=== PATIENT | female | born 1985 | race Caucasian/White ===

== ENCOUNTER 2018-01-22 11:31 | Emergency (ER) | payer MEDICAID ==
--- OUTSIDE RECORDS SUMMARY | 2018-01-22 11:34 | XMS REPORT ---
:1985 [facility] Address [address] [place] [address] Dr. Victor[address] [place] [id number] Care Team Providers Name Role Phone UNKNOWN, REFFERING Primary Care Provider Unavailable Problems This patient has no known problems. Allergies, Adverse Reactions, Alerts This patient has no known allergies or adverse reactions. Medications This patient has no known medications. Encounters Start End Encounter Admission Attending Care Care Encounter Date/Time Date/Time Type Type Clinicians Facility Department ID 2017-03-13 2017-03-13 Emergency E [facility] MED [id number] 16:05:00 16:05:00
[2018-01-22 12:55] LABS: Urine Blood NEGATIVE (NEG); Urine Glucose NEGATIVE (NEG); Urine Protein NEGATIVE (NEG); Urine Specific Gravity <1.005 (1.005-1.030); Urine pH 5.5 (5.0-7.0)
--- NOTE | 2018-01-22 14:09 | ER ---
Nurse's Notes [facility] Name: Patricia Dsouza Age: 33 yrs Sex: Female : 1985 Arrival Date: 01/22/2018 Time: 11:34 Bed 19 Private MD: Jacoby Bajwa Diagnosis: Urticaria, unspecified Presentation: 01/22 11:38 Presenting complaint: Patient states: Itchy rash all over body that "moves around to different locations" for 1 week. Transition of care: patient was not received from another setting of care. Onset of symptoms was January 16, 2018. Care prior to arrival: None. 11:38 Method Of Arrival: Ambulatory 11:38 Acuity: DARION 5 aj 12:20 Initial Sepsis Screen: Does the patient meet any 2 criteria? No. Patient's initial tw2 sepsis screen is negative. Does the patient have a suspected source of infection? No. Patient's initial sepsis screen is negative. Triage Assessment: 11:39 General: Appears in no apparent distress. comfortable, Behavior is calm, cooperative, aj appropriate for age. Pain: Denies pain. Neuro: Level of Consciousness is awake, alert, obeys commands, Oriented to person, place, time, situation, Appropriate for age. Respiratory: Airway is patent Respiratory effort is even, unlabored, Respiratory pattern is regular, symmetrical. Derm: Skin is intact, is healthy with good turgor, Skin is pink, warm \\T\\ dry. normal, Rash noted that is itchy, on face, scalp, right arm, left arm, right leg and left leg. 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 Elliott states I need sx on it; - PSHx: 11:39 heart cath; ; Hernia repair; aj - Immunization history:: Adult Immunizations up to date. - Social history:: Smoking status: Patient/guardian denies using tobacco. Screenin:20 Abuse screen: Denies threats or abuse. Nutritional screening: No deficits noted. tw2 Tuberculosis screening: No symptoms or risk factors identified. Fall Risk None identified. Assessment: 12:09 General: Appears in no apparent distress. Pain: Denies pain. Neuro: Level of tw2 Consciousness is awake, alert, obeys commands, Oriented to person, place, time, situation. Cardiovascular: Denies chest pain, shortness of breath, Capillary refill < 3 seconds Patient's skin is warm and dry. Respiratory: Airway is patent Respiratory effort is even, unlabored, Respiratory pattern is regular, symmetrical. GI: No signs and/or symptoms were reported involving the gastrointestinal system. : No signs and/or symptoms were reported regarding the genitourinary system. EENT: No signs and/or symptoms were reported regarding the EENT system. Derm: Reports itching, "rash all over me from the neck down". Musculoskeletal: Range of motion: intact in all extremities. 13:25 Reassessment: Patient appears in no apparent distress at this time. No changes from tw2 previously documented assessment. Patient and/or family updated on plan of care and expected duration. Pain level reassessed. Patient is alert, oriented x 3, equal unlabored respirations, skin warm/dry/pink. 14:15 Reassessment: Patient appears in no apparent distress at this time. No changes from tw2 previously documented assessment. Patient and/or family updated on plan of care and expected duration. Pain level reassessed. Patient is alert, oriented x 3, equal unlabored respirations, skin warm/dry/pink. Vital Signs: 11:39 BP 125 / 73; Pulse 83; Resp 17; Temp 97.8; Pulse Ox 99% on R/A; Weight 66.68 kg; Height aj 5 ft. 5 in. (165.10 cm); 13:25 BP 116 / 61; Pulse 88; Resp 17; Pulse Ox 100% on R/A; tw2 14:15 BP 104 / 59; Pulse 87; Resp 17; Pulse Ox 99% on R/A; tw2 11:39 Body Mass Index 24.46 (66.68 kg, 165.10 cm) ED Course: 11:34 Patient arrived in ED. mr 11:34 Jacoby Bajwa MD is Private Physician. mr 11:39 Triage completed. aj 11:39 Arm band placed on right wrist. Patient placed in an exam room. aj 11:43 Mala Camargo RN is Primary Nurse. tw2 11:43 Placed in gown. tw2 12:09 Balbir Petit PA is PHCP. cp 12:09 Andres Alvarez MD is Attending Physician. cp 13:50 Inserted saline lock: 22 gauge in right antecubital area, using aseptic technique. tw2 ,using aseptic technique. per Art Cuellar Blood collected. 14:26 No provider procedures requiring assistance completed. tw2 14:26 IV discontinued, intact, bleeding controlled, No redness/swelling at site. Pressure tw2 dressing applied. Administered Medications: No medications were administered Outcome: 14:08 Discharge ordered by MD. cp 14:26 Discharged to home ambulatory, with significant other. tw2 14:26 Condition: stable 14:26 Discharge instructions given to patient, significant other, Instructed on discharge instructions, follow up and referral plans. no drinking with medication, no driving heavy equipment, medication usage, Demonstrated understanding of instructions, follow-up care, medications, Prescriptions given X 3. 14:27 Patient left the ED. tw2 Signatures: Valarie Bourne RN Char Porras Balbir Petit PA PA cp Wise, Tara, RN RN tw2
--- NOTE | 2018-01-22 14:09 | EDPHYS ---
Physician Documentation [facility] Name: Patricia Dsouza Age: 33 yrs Sex: Female : 1985 Arrival Date: 01/22/2018 Time: 11:34 Bed 19 Private MD: Jacoby Bajwa ED Physician Andres Alvarez HPI: 01/22 12:45 This 33 yrs old Female presents to ER via Ambulatory with complaints of Rash. cp 12:45 The patient's rash thought to be caused by an unknown cause. cp 12:45 The rash is located on the body diffusely. The rash can be described as urticarial. cp Onset: The symptoms/episode began/occurred 1 week(s) ago. 12:45 Associated signs and symptoms: Pertinent negatives: difficulty breathing, fever, cp swelling of lips, swelling of throat, swelling of tongue, wheezing. 12:45 Treatment given at home: steroid lotion/cream. 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 Elliott states I need sx on it; - PSHx: 11:39 heart cath; ; Hernia repair; aj - Immunization history:: Adult Immunizations up to date. - Social history:: Smoking status: Patient/guardian denies using tobacco. ROS: 13:00 Constitutional: Negative for body aches, chills, fever, poor PO intake. cp 13:00 Eyes: Negative for injury, pain, redness, and discharge. cp 13:00 ENT: Negative for drainage from ear(s), ear pain, sore throat, difficulty swallowing, difficulty handling secretions. 13:00 Cardiovascular: Negative for chest pain, edema, palpitations. 13:00 Respiratory: Negative for cough, shortness of breath, wheezing. 13:00 Abdomen/GI: Negative for abdominal pain, nausea, vomiting, and diarrhea. 13:00 Skin: Positive for rash, diffusely. 13:00 All other systems are negative. Exam: 13:05 Constitutional: The patient appears in no acute distress, alert, awake, non-toxic, well cp developed, well nourished. 13:05 Head/Face: Normocephalic, atraumatic. cp 13:05 Eyes: Periorbital structures: appear normal, Conjunctiva: normal, no exudate, no injection, Lids and lashes: appear normal, bilaterally. 13:05 ENT: External ear(s): are unremarkable, Ear canal(s): are normal, clear, TM's: dullness, bilaterally, Nose: is normal, Mouth: is normal, Posterior pharynx: is normal, airway is patent, no erythema, no exudate. 13:05 Chest/axilla: Palpation: is normal, no crepitus, no tenderness. 13:05 Cardiovascular: Rate: normal, Rhythm: regular. 13:05 Respiratory: the patient does not display signs of respiratory distress, Respirations: normal, no use of accessory muscles, no retractions, no splinting, no tachypnea, labored breathing, is not present, Breath sounds: are clear throughout, no decreased breath sounds, no stridor, no wheezing. 13:05 Abdomen/GI: Exam negative for discomfort, distension, guarding, Bowel sounds: active, all quadrants, Palpation: abdomen is soft and non-tender, in all quadrants. 13:05 Skin: abscess, not appreciated, cellulitis, is not appreciated, rash a moderate rash is noted, rash can be described as urticarial, and is diffusely located. 13:05 Neuro: Orientation: to person, place \T\ time. Mentation: lucid, able to follow commands, Cerebellar function: is grossly normal, Motor: moves all fours, strength is normal. Vital Signs: 11:39 BP 125 / 73; Pulse 83; Resp 17; Temp 97.8; Pulse Ox 99% on R/A; Weight 66.68 kg; Height aj 5 ft. 5 in. (165.10 cm); 13:25 BP 116 / 61; Pulse 88; Resp 17; Pulse Ox 100% on R/A; tw2 14:15 BP 104 / 59; Pulse 87; Resp 17; Pulse Ox 99% on R/A; tw2 11:39 Body Mass Index 24.46 (66.68 kg, 165.10 cm) aj MDM: 12:09 Patient medically screened. cp 13:00 Differential diagnosis: impetigo, varicella, allergic reaction, scabies. cp 14:07 Data reviewed: vital signs, nurses notes, and as a result, I will discharge patient. 01/22 12:48 Order name: Urine Dipstick--Ancillary (enter results); Complete Time: 13:05 [facility] 01/22 13:05 Interpretation: Reviewed. 01/22 12:48 Order name: Test, Serum; Complete Time: 14:07 [facility] 01/22 12:39 Order name: Urine Dipstick-Ancillary (obtain specimen); Complete Time: 12:41 01/22 12:39 Order name: Urine Test (obtain specimen); Complete Time: 12:41 cp Administered Medications: No medications were administered Disposition: 17:46 Co-signature as Attending Physician, Andres Alvarez MD I agree with the assessment and kdr plan of care. Disposition: 01/22/18 14:08 Discharged to Home. Impression: Urticaria, unspecified. - Condition is Stable. - Discharge Instructions: Hives. - Prescriptions for Vistaril 25 mg Oral capsule - take 1 capsule by ORAL route 4 times per day; 30 capsule. Pepcid 20 mg Oral Tablet - take 1 tablet by ORAL route every 12 hours for 5 days; 10 tablet. Prednisone 20 mg Oral Tablet - take 2 tablet by ORAL route once daily for 5 days; 10 tablet. - Medication Reconciliation Form, Thank You Letter, Antibiotic Education, Prescription Opioid Use form. - Follow up: Private Physician; When: 1 week; Reason: symptoms continue. - Problem is new. - Symptoms are unchanged. Signatures: Dispatcher [email or web address]Valarie Corley RN RN aj Rittger, Kevin, MD MD [facility] Balbir Petit PA PA cp Mala Camargo RN RN tw2 Corrections: (The following items were deleted from the chart) 14:27 14:08 01/22/2018 14:08 Discharged to Home. Impression: Urticaria, unspecified. tw2 Condition is Stable. Forms are Medication Reconciliation Form, Thank You Letter, Antibiotic Education, Prescription Opioid Use. Follow up: Private Physician; When: 1 week; Reason: symptoms continue. Problem is new. Symptoms are unchanged. cp
[2018-01-22 14:36] VITALS: TEMP 97.8
[2018-01-22 14:39] VITALS: BP 104/59; O2SAT 99
== END 2018-01-22 14:27 | disposition home or self-care (01) ==
LOC: ER 11:31
DX: L50.9 Urticaria, unspecified (principal)
CPT/HCPCS: 36415; 81003; 84703; 99283

== ENCOUNTER 2018-02-15 05:37 | Emergency (ER) | payer MEDICAID ==
--- OUTSIDE RECORDS SUMMARY | 2018-02-15 05:38 | XMS REPORT ---
:1985 [facility] Address [address] [place] [address] Dr. Victor. [address] [place] [id number] Care Team Providers Name Role Phone UNKNOWN, REFFERING Primary Care Provider Unavailable Problems This patient has no known problems. Allergies, Adverse Reactions, Alerts This patient has no known allergies or adverse reactions. Medications This patient has no known medications. Encounters Start End Encounter Admission Attending Care Care Encounter Date/Time Date/Time Type Type Clinicians Facility Department ID 2017-03-13 2017-03-13 Emergency E [facility] MED [id number] 16:05:00 16:05:00
[2018-02-15] MEDS ORDERED: DEXAMETHASONE 10 MG/ML VIAL ONE (06:25)
[2018-02-15] MEDS ORDERED: HYDROCOD 2.5mg-ACETAMIN 108mg/5mL Soln ONE (06:26)
[2018-02-15] MEDS ORDERED: ONDANSETRON 4 MG (ODT) TAB ONE (06:26)
--- NOTE | 2018-02-15 07:26 | ER ---
Nurse's Notes [facility] Name: Patricia Posey Age: 33 yrs Sex: Female : 1985 Arrival Date: 02/15/2018 Time: 05:37 Bed 7 Private MD: Jacoby Bajwa Diagnosis: Streptococcal pharyngitis Presentation: 02/15 05:46 Presenting complaint: Patient states: she has a sore throat x 3 days denies fever bb states it feels like her throat is "sticking together" when she swallows and the pain is 10/10 she also had 2 days of vomiting and diarrhea prior to sore throat symptoms. Transition of care: patient was not received from another setting of care. Onset of symptoms was February 12, 2016. Risk Assessment: Do you want to hurt yourself or someone else? Patient reports no desire to harm self or others. Initial Sepsis Screen: Does the patient meet any 2 criteria? No. Patient's initial sepsis screen is negative. Does the patient have a suspected source of infection? No. Patient's initial sepsis screen is negative. Care prior to arrival: None. 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 Elliott states I need sx on it; - PSHx: 05:48 heart ablation; ; Hernia repair; bb - Immunization history:: Adult Immunizations up to date. - Social history:: Smoking status: Patient/guardian denies using tobacco, Patient/guardian denies using alcohol, street drugs. - Ebola Screening: : No symptoms or risks identified at this time. Screenin:51 Abuse screen: Denies threats or abuse. Denies injuries from another. Nutritional lp1 screening: No deficits noted. Tuberculosis screening: No symptoms or risk factors identified. Fall Risk None identified. Assessment: 05:50 General: Appears in no apparent distress. Behavior is calm, cooperative, appropriate lp1 for age. Pain:. Neuro: Level of Consciousness is awake, alert, obeys commands. Cardiovascular: Patient's skin is warm and dry. Respiratory: Airway is patent Respiratory effort is even, Respiratory pattern is regular, Breath sounds are clear bilaterally. GI: Abdomen is flat. : No signs and/or symptoms were reported regarding the genitourinary system. EENT: Throat is clear Reports pain when swallowing. Derm: Skin is pink, warm \\T\\ dry. Musculoskeletal: Circulation, motion, and sensation intact. Vital Signs: 05:48 BP 102 / 76; Pulse 64; Resp 18 S; Temp 98.2(O); Pulse Ox 100% on R/A; Weight 68.04 kg bb (R); Height 5 ft. 5 in. (165.10 cm) (R); Pain 10/10; 05:48 Body Mass Index 24.96 (68.04 kg, 165.10 cm) bb ED Course: 05:37 Patient arrived in ED. ds1 05:38 Jacoby Bajwa MD is Private Physician. ds1 05:48 Triage completed. bb 05:48 Madonna Araiza RN is Primary Nurse. ea 05:48 Arm band placed on Patient placed in an exam room, on a stretcher. Family accompanied bb patient. 05:50 Nanda Burch RN is Primary Nurse. lp1 05:52 Patient has correct armband on for positive identification. lp1 05:52 No provider procedures requiring assistance completed. Patient did not have IV access lp1 during this emergency room visit. 05:57 Christine Lacey [facility]-C [facility]. snw 05:57 John Pierre MD is Attending Physician. snw 06:16 Strep swab sent to lab. lp1 07:11 Primary Nurse role handed off by Nanda Burch RN bd 07:20 Benjie Arizmendi RN is Primary Nurse. jl7 07:25 Jacoby Bajwa MD is Referral Physician. snw Administered Medications: 06:27 Drug: Zofran 4 mg Route: PO; lp1 07:32 Follow up: Response: No adverse reaction aa5 06:27 Drug: Decadron - Dexamethasone 10 mg Route: IVP; Site: Other; lp1 07:32 Follow up: Response: No adverse reaction aa5 06:27 Drug: Lortab Liquid 10 ml Route: PO; lp1 07:32 Follow up: Response: No adverse reaction aa5 07:32 Drug: Zithromax 500 mg Route: PO; aa5 07:32 Follow up: Response: Medication administered at discharge. aa5 Outcome: 07:25 Discharge ordered by . snsandra 07:35 Discharged to home ambulatory, with significant other. aa5 07:35 Condition: stable 07:35 Discharge instructions given to patient, significant other, Instructed on discharge instructions, follow up and referral plans. medication usage, Demonstrated understanding of instructions, follow-up care, medications, Prescriptions given X 2. 07:37 Patient left the ED. aa5 Signatures: Eliz Obando Shelly, CAUL PULLER-C CAUL PULLER-Csnw Clara Castillo ds1 Kimmy Hart RN RN bb Meggan Dyer RN RN aa5 Nanda Burch RN RN lp1 Benjie Arizmendi RN RN jl7 Madonna Araiza RN RN ea
--- NOTE | 2018-02-15 07:26 | EDPHYS ---
Physician Documentation [facility] Name: Patricia Posey Age: 33 yrs Sex: Female : 1985 Arrival Date: 02/15/2018 Time: 05:37 Bed 7 Private MD: Jacoby Bajwa ED Physician John Pierre HPI: 02/15 06:23 This 33 yrs old Female presents to ER via Ambulatory with complaints of Sore snw Throat. 06:23 The patient presents with sore throat. The patient describes throat pain as constant, snw raw, scratchy. Onset: The symptoms/episode began/occurred suddenly, 2 day(s) ago, and became persistent. Severity of symptoms: At their worst the symptoms were moderate. Associated signs and symptoms: Pertinent positives: diarrhea, flu-like symptoms, nausea, Sore throat vomiting. The patient has not experienced similar symptoms in the past. The patient has not recently seen a physician. 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 Ellitot states I need sx on it; - PSHx: 05:48 heart ablation; ; Hernia repair; bb - Immunization history:: Adult Immunizations up to date. - Social history:: Smoking status: Patient/guardian denies using tobacco, Patient/guardian denies using alcohol, street drugs. - Ebola Screening: : No symptoms or risks identified at this time. ROS: 06:22 Constitutional: Negative for fever, chills, and weight loss, Eyes: Negative for injury, snw pain, redness, and discharge, Neck: Negative for injury, pain, and swelling, Cardiovascular: Negative for chest pain, palpitations, and edema, Respiratory: Negative for shortness of breath, cough, wheezing, and pleuritic chest pain, Back: Negative for injury and pain, : Negative for injury, bleeding, discharge, and swelling, MS/Extremity: Negative for injury and deformity, Skin: Negative for injury, rash, and discoloration, Neuro: Negative for headache, weakness, numbness, tingling, and seizure. 06:22 ENT: Positive for sore throat. 06:22 Abdomen/GI: Positive for nausea, vomiting, and diarrhea. Exam: 06:17 Constitutional: This is a well developed, well nourished patient who is awake, alert, snw and in no acute distress. Head/Face: Normocephalic, atraumatic. Eyes: Pupils equal round and reactive to light, extra-ocular motions intact. Lids and lashes normal. Conjunctiva and sclera are non-icteric and not injected. Cornea within normal limits. Periorbital areas with no swelling, redness, or edema. Neck: Trachea midline, no thyromegaly or masses palpated, and no cervical lymphadenopathy. Supple, full range of motion without nuchal rigidity, or vertebral point tenderness. No Meningismus. Chest/axilla: Normal chest wall appearance and motion. Nontender with no deformity. No lesions are appreciated. Cardiovascular: Regular rate and rhythm with a normal S1 and S2. No gallops, murmurs, or rubs. Normal PMI, no JVD. No pulse deficits. Respiratory: Lungs have equal breath sounds bilaterally, clear to auscultation and percussion. No rales, rhonchi or wheezes noted. No increased work of breathing, no retractions or nasal flaring. Abdomen/GI: Soft, non-tender, with normal bowel sounds. No distension or tympany. No guarding or rebound. No evidence of tenderness throughout. Back: No spinal tenderness. No costovertebral tenderness. Full range of motion. Skin: Warm, dry with normal turgor. Normal color with no rashes, no lesions, and no evidence of cellulitis. MS/ Extremity: Pulses equal, no cyanosis. Neurovascular intact. Full, normal range of motion. Neuro: Awake and alert, GCS 15, oriented to person, place, time, and situation. Cranial nerves II-XII grossly intact. Motor strength 5/5 in all extremities. Sensory grossly intact. Cerebellar exam normal. Normal gait. Psych: Awake, alert, with orientation to person, place and time. Behavior, mood, and affect are within normal limits. 06:17 ENT: External ear(s): are unremarkable, TM's: are normal, Nose: is normal, Mouth: no acute changes, Posterior pharynx: swelling, is not appreciated, erythema, that is moderate, exudate, is not appreciated, Voice: is normal. Vital Signs: 05:48 BP 102 / 76; Pulse 64; Resp 18 S; Temp 98.2(O); Pulse Ox 100% on R/A; Weight 68.04 kg bb (R); Height 5 ft. 5 in. (165.10 cm) (R); Pain 10/10; 05:48 Body Mass Index 24.96 (68.04 kg, 165.10 cm) bb MDM: 05:58 Patient medically screened. snw 07:26 Data reviewed: vital signs, nurses notes. Data interpreted: Pulse oximetry: on room air snw is 100 %. Interpretation: normal. Counseling: I had a detailed discussion with the patient and/or guardian regarding: the historical points, exam findings, and any diagnostic results supporting the discharge/admit diagnosis, lab results, the need for outpatient follow up, to return to the emergency department if symptoms worsen or persist or if there are any questions or concerns that arise at home. Special discussion: Based on the history and exam findings, there is no indication for further emergent testing or inpatient evaluation. I discussed with the patient/guardian the need to see the primary care provider for further evaluation of the symptoms. 02/15 05:58 Order name: Strep; Complete Time: 07:20 snw Administered Medications: 06:27 Drug: Zofran 4 mg Route: PO; lp1 07:32 Follow up: Response: No adverse reaction aa5 06:27 Drug: Decadron - Dexamethasone 10 mg Route: IVP; Site: Other; lp1 07:32 Follow up: Response: No adverse reaction aa5 06:27 Drug: Lortab Liquid 10 ml Route: PO; lp1 07:32 Follow up: Response: No adverse reaction aa5 07:32 Drug: Zithromax 500 mg Route: PO; aa5 07:32 Follow up: Response: Medication administered at discharge. aa5 Disposition: 20:33 Co-signature as Attending Physician, John Pierre MD. rn Disposition: 02/15/18 07:25 Discharged to Home. Impression: Streptococcal pharyngitis. - Condition is Stable. - Discharge Instructions: Sore Throat, Strep Throat, Rehydration, Adult. - Prescriptions for Zofran 4 mg Oral Tablet - take 1 tablet by ORAL route every 12 hours As needed; 20 tablet. Zithromax 500 mg Oral Tablet - take 1 tablet by ORAL route once daily for 5 days; 5 tablet. - Work release form, Medication Reconciliation Form, Thank You Letter, Antibiotic Education, Prescription Opioid Use form. - Follow up: Jacoby Bajwa MD; When: 2 - 3 days; Reason: Recheck today's complaints, Continuance of care, Re-evaluation by your physician. Follow up: Emergency Department; When: As needed; Reason: Worsening of condition. Signatures: Dispatcher [employer] EDMS Christine Lacey, CABLE DRILLER-C CABLE DRILLER-Csnw Kimmy Hart, RN RN bb John Pierre MD MD rn Calderon, Audri RN RN aa5 Nanda Burch RN RN lp1 Corrections: (The following items were deleted from the chart) 07:37 07:25 02/15/2018 07:25 Discharged to Home. Impression: Streptococcal pharyngitis. aa5 Condition is Stable. Forms are Medication Reconciliation Form, Thank You Letter, Antibiotic Education, Prescription Opioid Use. Follow up: Jacoby Bajwa; When: 2 - 3 days; Reason: Recheck today's complaints, Continuance of care, Re-evaluation by your physician. Follow up: Emergency Department; When: As needed; Reason: Worsening of condition. snw
[2018-02-15] MEDS ORDERED: AZITHROMYCIN 250 MG TAB ONE (07:35)
[2018-02-15 07:43] VITALS: BP 102/76; TEMP 98.2; O2SAT 100
== END 2018-02-15 07:37 | disposition home or self-care (01) ==
LOC: ER 05:37
DX: J02.0 Streptococcal pharyngitis (principal)
CPT/HCPCS: 87081; 96374; 99283; J1100

== ENCOUNTER 2018-06-08 09:00 | Emergency (ER) | payer MEDICAID, OTHER ==
--- OUTSIDE RECORDS SUMMARY | 2018-06-08 09:02 | XMS REPORT ---
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
--- OUTSIDE RECORDS SUMMARY | 2018-06-08 09:02 | XMS REPORT ---
:1985 Author Organization eClinicalWorks Care Team Providers Name Role Phone Jacoby Bajwa Provider Role Unavailable Allergies, Adverse Reactions, Alerts Substance Reaction Event Type N.K.D.A. Info Not Available Non Drug Allergy Problems Problem Type Condition Code Onset Dates Condition Status Problem PTSD (post-traumatic stress F43.10 Active disorder) Problem Atrial fibrillation status post I48.91 Active cardioversion Problem Lumbar degenerative disc disease M51.36 Active Medications No Known Medications Results No Known Results Summary Purpose eClinicalWorks Submission
--- OUTSIDE RECORDS SUMMARY | 2018-06-08 09:02 | XMS REPORT ---
:1985 Author Organization [facility] Address [address] [place] [address] Dr. [address] [place] [address] Care Team Providers Name Role Phone UNKNOWN, REFFERING Primary Care Provider Unavailable Problems This patient has no known problems. Allergies, Adverse Reactions, Alerts This patient has no known allergies or adverse reactions. Medications This patient has no known medications. Encounters Start End Encounter Admission Attending Care Care Encounter Date/Time Date/Time Type Type Clinicians Facility Department ID 2017-03-13 2017-03-13 Emergency E [facility] MED [id number] 16:05:00 16:05:00
--- NOTE | 2018-06-08 09:47 | ER ---
Nurse's Notes [facility] Name: Patricia Posey Age: 33 yrs Sex: Female : 1985 Arrival Date: 06/08/2018 Time: 09:03 Bed 20 Private MD: Diagnosis: Encounter for screening, unspecified Presentation: 06/08 09:16 Presenting complaint: Patient states: low back pain that started yesterday after em cleaning home, hx of 2 herniated discs that was supposed to have surgery on but was not cleared by cardiology yet, pain does not radiate, pain 9/. Transition of care: patient was not received from another setting of care. Onset of symptoms was June 08, 2018. Risk Assessment: Do you want to hurt yourself or someone else? Patient reports no desire to harm self or others. Initial Sepsis Screen: Does the patient meet any 2 criteria? No. Patient's initial sepsis screen is negative. Does the patient have a suspected source of infection? No. Patient's initial sepsis screen is negative. Care prior to arrival: None. 09:16 Method Of Arrival: Ambulatory em 09:16 Acuity: DARION 5 iw Triage Assessment: 09:20 General: Appears in no apparent distress. uncomfortable, Behavior is crying. Pain: em Complains of pain in lumbar area. Musculoskeletal: Circulation, motion, and sensation intact. Capillary refill < 3 seconds, Range of motion: intact in all extremities. 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 Elliott states I need sx on it; - PSHx: 09:20 ; em - Immunization history:: Adult Immunizations up to date. - Social history:: Smoking status: Patient/guardian denies using tobacco. - Ebola Screening: : Patient negative for fever greater than or equal to 101.5 degrees Fahrenheit, and additional compatible Ebola Virus Disease symptoms Patient denies exposure to infectious person Patient denies travel to an Ebola-affected area in the 21 days before illness onset No symptoms or risks identified at this time. Screenin:23 Abuse screen: Denies threats or abuse. Nutritional screening: No deficits noted. em Tuberculosis screening: No symptoms or risk factors identified. Fall Risk None identified. Assessment: 09:30 General: Appears in no apparent distress. uncomfortable, Behavior is cooperative, em crying. Pain: Complains of pain in lumbar area. Neuro: Level of Consciousness is awake, alert, obeys commands, Oriented to person, place, time, situation, Intact. Cardiovascular: Patient's skin is warm and dry. Respiratory: Airway is patent Respiratory effort is even, unlabored, Respiratory pattern is regular, symmetrical. GI: Abdomen is flat. : No signs and/or symptoms were reported regarding the genitourinary system. EENT: No signs and/or symptoms were reported regarding the EENT system. Derm: Skin is intact, Skin is pink, warm \T\ dry. Musculoskeletal: Range of motion: intact in all extremities. 09:45 Reassessment: Patient appears in no apparent distress at this time. I agree with above iw assessment by Nilson Wong LVN. Vital Signs: 09:20 BP 126 / 63; Pulse 87; Resp 18; Pulse Ox 100% on R/A; Pain 9/10; em ED Course: 09:03 Patient arrived in ED. mr 09:12 Chencho Cruz MD is Attending Physician. 09:16 Nilson Wong LVN is Primary Nurse. em 09:20 Arm band placed on. em 09:23 Patient has correct armband on for positive identification. Bed in low position. Call em light in reach. Adult w/ patient. 09:23 No provider procedures requiring assistance completed. Patient did not have IV access em during this emergency room visit. 09:47 Triage completed. iw Administered Medications: 09:30 Not Given (pt declined treatment ): Delcambre 5 mg-325 mg 1 tabs PO once iw Outcome: 09:33 Medical screen evaluation completed per provider. Patient declined treatment. em 09:33 Condition: good 09:33 Instructed on follow up and referral plans. em 09:46 Discharge ordered by . gs 09:48 Patient left the ED. em Signatures: Siomara Vela mr Nilson Wong LVN LVN em Saira Irving RN RN iw Chencho Cruz MD MD
--- NOTE | 2018-06-08 09:47 | EDPHYS ---
Physician Documentation [facility] Name: Patricia Posey Age: 33 yrs Sex: Female : 1985 Arrival Date: 06/08/2018 Time: 09:03 Bed 20 Private MD: ED Physician Chencho Cruz HPI: 06/08 09:39 This 33 yrs old Female presents to ER via Ambulatory with complaints of Back gs Pain. 09:39 The patient presents with pain that is acute. The symptoms are located in the low back. gs Onset: The symptoms/episode began/occurred 2 day(s) ago. The pain radiates to the right gluteus catalina. Associated signs and symptoms: Pertinent negatives: hematuria, incontinence, numbness, tingling, urinary retention, weakness. The problem was sustained when bending over. Modifying factors: the patient symptoms are aggravated by movement. Severity of symptoms: At their worst the symptoms were moderate, in the emergency department the symptoms are unchanged. The patient has experienced similar episodes in the past, chronically. 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 Elliott states I need sx on it; - PSHx: 09:20 ; em - Immunization history:: Adult Immunizations up to date. - Social history:: Smoking status: Patient/guardian denies using tobacco. - Ebola Screening: : Patient negative for fever greater than or equal to 101.5 degrees Fahrenheit, and additional compatible Ebola Virus Disease symptoms Patient denies exposure to infectious person Patient denies travel to an Ebola-affected area in the 21 days before illness onset No symptoms or risks identified at this time. ROS: 09:39 All other systems are negative. gs Exam: 09:39 Head/Face: Normocephalic, atraumatic. Eyes: Pupils equal round and reactive to light, gs extra-ocular motions intact. Lids and lashes normal. Conjunctiva and sclera are non-icteric and not injected. Cornea within normal limits. Periorbital areas with no swelling, redness, or edema. ENT: Nares patent. No nasal discharge, no septal abnormalities noted. Tympanic membranes are normal and external auditory canals are clear. Oropharynx with no redness, swelling, or masses, exudates, or evidence of obstruction, uvula midline. Mucous membranes moist. Neck: Trachea midline, no thyromegaly or masses palpated, and no cervical lymphadenopathy. Supple, full range of motion without nuchal rigidity, or vertebral point tenderness. No Meningismus. Chest/axilla: Normal chest wall appearance and motion. Nontender with no deformity. No lesions are appreciated. Cardiovascular: Regular rate and rhythm with a normal S1 and S2. No gallops, murmurs, or rubs. Normal PMI, no JVD. No pulse deficits. Respiratory: Lungs have equal breath sounds bilaterally, clear to auscultation and percussion. No rales, rhonchi or wheezes noted. No increased work of breathing, no retractions or nasal flaring. Abdomen/GI: Soft, non-tender, with normal bowel sounds. No distension or tympany. No guarding or rebound. No evidence of tenderness throughout. 09:39 Constitutional: The patient appears alert, awake, uncomfortable. 09:39 Back: Exam negative for pain, that is mild, of the right low back. 09:39 Back: Straight leg raises: right lower extremity illicits pain, at 30 degrees. 09:39 Neuro: Cranial nerves: CN II- XII are normal as tested, Cerebellar function: is grossly normal, Motor: strength is 5/5 in all extremities. 09:39 Neuro: Sensation: no obvious gross deficits, no acute changes, Gait: is steady, Deep tendon reflexes are 2+ (normal) in the right patellar, right Achilles, left patellar and left Achilles. Vital Signs: 09:20 BP 126 / 63; Pulse 87; Resp 18; Pulse Ox 100% on R/A; Pain 9/10; em MDM: 09:22 Patient medically screened. gs 09:39 Differential diagnosis: chronic back pain, Ligament Injury ruptured disc. Data gs reviewed: vital signs, nurses notes. Response to treatment: There is no appreciated change of the patient's symptoms at this time, and as a result, I will discharge patient. Administered Medications: 09:30 Not Given (pt declined treatment ): Naselle 5 mg-325 mg 1 tabs PO once iw Disposition: 09:39 lumbar radiculopathy, chronic back pain. gs Disposition: 06/08/18 09:46 Discharged to Home. Impression: Encounter for screening, unspecified. - Condition is Stable. - Medication Reconciliation Form, Thank You Letter, Antibiotic Education, Prescription Opioid Use form. - Follow up: Private Physician; When: 1 - 2 days; Reason: Re-evaluation by your physician. Signatures: Nilson Wong LVN LVN em Chencho Cruz MD MD Saira Irving RN Corrections: (The following items were deleted from the chart) 09:48 09:46 06/08/2018 09:46 Discharged to Home. Impression: Encounter for screening, em unspecified. Condition is Stable. Forms are Medication Reconciliation Form, Thank You Letter, Antibiotic Education, Prescription Opioid Use. Follow up: Private Physician; When: 1 - 2 days; Reason: Re-evaluation by your physician. gs
[2018-06-08 09:53] VITALS: BP 126/63; O2SAT 100
== END 2018-06-08 09:48 | disposition home or self-care (01) ==
LOC: ER 09:00
DX: Z13.9 Encounter for screening, unspecified (principal); F32.9 Major depressive disorder, single episode, unspecified
CPT/HCPCS: 99281

== ENCOUNTER 2018-07-22 09:55 | Emergency (ER) | payer MEDICAID ==
--- OUTSIDE RECORDS SUMMARY | 2018-07-22 10:02 | XMS REPORT ---
:1985 Author [facility] Address [address] [place] [address] Dr. [address] [place] [id number] Care Team Providers Name Role Phone UNKNOWN, REFFERING Primary Care Provider Unavailable Problems This patient has no known problems. Allergies, Adverse Reactions, Alerts This patient has no known allergies or adverse reactions. Medications This patient has no known medications. Encounters Start End Encounter Admission Attending Care Care Encounter Date/Time Date/Time Type Type Clinicians Facility Department ID 2017-03-13 2017-03-13 Emergency E [facility] MED [id number] 16:05:00 16:05:00
--- OUTSIDE RECORDS SUMMARY | 2018-07-22 10:02 | XMS REPORT ---
[...] Status Dosage System Date Date Sertraline HCl [facility] [id number] 50 MG Orally March 18, Active 1 tablet Once a day 2017 HydrOXYzine HCl ND [id number] 50 MG Orally March 18, Active 1 tablet every 8 hrs 2018 as needed Results No Known Results Summary Purpose eClinicalWorks Submission
--- NOTE | 2018-07-22 10:52 | RAD REPORT ---
EXAM DESCRIPTION: RAD - Chest Single View - 07/22/2018 10:46 am CLINICAL HISTORY: chest pain Chest pain. COMPARISON: Chest Single View dated 07/29/2017; Chest Single View dated 07/17/2017; Chest Pa And Lat (2 Views) dated 09/24/2016 FINDINGS: Portable technique limits examination quality. The lungs are grossly clear. The heart is upper limit of normal in size. No displaced fractures. IMPRESSION: No acute intrathoracic process suspected.
[2018-07-22 10:53] LABS: Urine Blood 2+ (NEG); Urine Glucose NEGATIVE (NEG); Urine Protein NEGATIVE (NEG)
[2018-07-22 10:57] LABS: Urine Bacteria <20 /HPF (<20); Urine Culture Reflex Order NOT NEEDED; Urine RBC <5 /HPF (NONE SEEN)
[2018-07-22 10:58] LABS: Absolute Monocytes 0.4 K/uL (0.1-1.3); Basophils % 0.8 % (0-1.3); Eosinophils % 1.5 % (0-4.4); Hematocrit 41.3 % (36.0-45.0); Lymphocytes % 30.8 % (15.3-44.8); MCH 30.4 pg (27.0-35.0); MCV 88.1 fL (80-100); MPV 10.5 fL (7.6-11.3); Monocytes % 6.5 % (3.3-12.3); RBC Red Blood Cell Count 4.69 M/uL (3.86-4.86)
[2018-07-22] MEDS ORDERED: ASPIRIN 81 MG CHEWABLE TABLET ONE (10:59)
[2018-07-22 11:03] LABS: Protime INR 0.96
[2018-07-22 11:15] LABS: ALT/SGPT 20 U/L (12-78); AST/SGOT 17 U/L (15-37); Albumin 3.9 g/dL (3.4-5.0); Alkaline Phosphatase 73 U/L (45-117); BUN Blood Urea Nitrogen 10 mg/dL (7-18); Bicarbonate 25 mmol/L (21-32); Bilirubin Direct 0.1 mg/dL (0-0.2); Bilirubin Total 0.2 mg/dL (0.2-1.0); Glucose Level 73 mg/dL (74-106); Lipase 217 U/L (73-393); Magnesium 2.2 mg/dL (1.8-2.4); NT PRO-BNP 125 pg/mL (<125); Protein, Total 7.9 g/dL (6.4-8.2); Sodium Level 138 mmol/L (136-145); Troponin (Emerg Dept Use Only) < 0.02 ng/mL (0.0-0.045)
[2018-07-22 11:20] LABS: Barbiturates NEGATIVE (NEGATIVE); Benzodiazepines NEGATIVE (NEGATIVE); Cocaine NEGATIVE (NEGATIVE); METHAMPHETAM NEGATIVE (NEGATIVE); Methadone NEGATIVE (NEGATIVE); Opiates NEGATIVE (NEGATIVE); Phencyclidine NEGATIVE (NEGATIVE); THC Cannibis NEGATIVE (NEGATIVE)
[2018-07-22] MEDS ORDERED: NA CHLORIDE 0.9% 1,000 ML ONE (12:34)
--- NOTE | 2018-07-22 12:52 | ER ---
Nurse's Notes [facility] Name: Patricia Posey Age: 33 yrs Sex: Female : 1985 Arrival Date: 07/22/2018 Time: 09:56 Bed 7 Private MD: Diagnosis: Palpitations;Chest pain, unspecified Presentation: 07/22 10:08 Presenting complaint: Patient states: Intermittent chest pain and mild SOB x 3 days. hb Transition of care: patient was not received from another setting of care. Onset of symptoms was July 21, 2018. Risk Assessment: Do you want to hurt yourself or someone else? Patient reports no desire to harm self or others. Care prior to arrival: None. 10:08 Method Of Arrival: Ambulatory hb 10:08 Acuity: DARION 3 hb 10:59 Initial Sepsis Screen: Does the patient meet any 2 criteria? No. Patient's initial sv sepsis screen is negative. Does the patient have a suspected source of infection? No. Patient's initial sepsis screen is negative. 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 Elliott states I need sx on it; - PSHx: 10:10 ; Cardiac Ablation; hb - Immunization history:: Adult Immunizations up to date. - Social history:: Smoking status: Patient/guardian denies using tobacco. - Ebola Screening: : No symptoms or risks identified at this time. - Family history:: not pertinent. Screenin:11 Abuse screen: Denies threats or abuse. Denies injuries from another. Nutritional hb screening: No deficits noted. Tuberculosis screening: No symptoms or risk factors identified. Fall Risk None identified. Assessment: 10:45 General: Appears uncomfortable, slender, well developed, Behavior is calm, cooperative, sv appropriate for age. Pain: Denies pain. Neuro: Level of Consciousness is awake, alert, obeys commands, Oriented to person, place, time, situation, Moves all extremities. Full function Gait is steady, Speech is normal. Cardiovascular: Patient's skin is warm and dry. Cardiovascular: Rhythm is Bigeminy. Respiratory: Respiratory effort is even, unlabored, Respiratory pattern is regular, symmetrical. Respiratory: Reports shortness of breath intermittently when she has the chest pain episodes. Derm: Skin is normal. 12:15 Reassessment: Patient appears in no apparent distress at this time. No changes from sv previously documented assessment. Patient and/or family updated on plan of care and expected duration. Pain level reassessed. Patient is alert, oriented x 3, equal unlabored respirations, skin warm/dry/pink. 13:15 Reassessment: Pt stated that she has called her human service technician and she is waiting for sv them to call her back. She stated that Dr Nicholson wanted her to call her human service technician to get an appt. She called the office and they told her not to leave the ER until her human service technician called her back. 14:15 Reassessment: Dr Nicholson stated that he spoke with her human service technician and she is ok to sv go home. She is to make sure that she gets a follow up appt. Vital Signs: 10:09 BP 105 / 67; Pulse 79; Resp 18; Temp 97.9; Pulse Ox 100% on R/A; Pain 7/10; hb 10:55 BP 132 / 92; Pulse 60 MON; Resp 22; Pulse Ox 99% on 2 lpm NC; sv 11:45 BP 114 / 73; Pulse 63; Resp 18; Pulse Ox 99% on 2 lpm NC; sv 12:22 BP 88 / 67; Pulse 59; Resp 15; Pulse Ox 100% ; sv 13:13 BP 99 / 70; Pulse 76; Resp 17; Pulse Ox 98% on R/A; sv 13:30 BP 113 / 98; Pulse 100; Resp 17; Pulse Ox 96% on R/A; sv 13:57 BP 100 / 65 Supine; Pulse 63; jb1 13:57 BP 107 / 80 Sitting; Pulse 76; jb1 13:57 BP 105 / 78 Standing; Pulse 79; jb1 10:55 Bigeminy noted. sv Vitals: 10:55 Cardiac Rhythm Assessment. sv ED Course: 09:56 Patient arrived in ED. as 10:09 Triage completed. hb 10:10 Arm band placed on. hb 10:11 EKG done, by sound engineering technician. reviewed by Florin Yousif MD. at1 10:15 Placed in gown. Bed in low position. Call light in reach. night monitor on. Pulse ox sv on. NIBP on. 10:18 Balbir Nicholson MD is Attending Physician. sara 10:30 Initial lab(s) drawn, by me, sent to lab. Inserted saline lock: 22 gauge in left upper jb1 arm, using aseptic technique. Blood collected. 10:44 Kiah Toussaint RN is Primary Nurse. sv 10:44 Urine collected: clean catch specimen, clear. sv 10:45 Patient has correct armband on for positive identification. sv 10:45 Oxygen administration via nasal cannula \T\ 2L/min. sv 10:47 Chest Single View In Process Unspecified. EDMS 12:51 Jack Chisholm MD is Referral Physician. sara 14:33 No provider procedures requiring assistance completed. IV discontinued, intact, sv bleeding controlled, No redness/swelling at site. Pt removed her IV herself. Administered Medications: 10:54 Drug: Aspirin 162 mg Route: PO; sv 11:05 Follow up: Response: No adverse reaction sv 12:33 Drug: NS 0.9% 1000 ml Route: IV; Rate: 1000 ml; Site: left antecubital; sv 13:25 Follow up: Response: No adverse reaction; IV Status: Completed infusion; IV Intake: sv 1000ml Intake: 13:25 IV: 1000ml; Total: 1000ml. sv Outcome: 12:51 Discharge ordered by . sara 14:33 Discharged to home ambulatory, with family. sv 14:33 Condition: stable 14:33 Discharge instructions given to patient, Instructed on discharge instructions, follow up and referral plans. Demonstrated understanding of instructions, follow-up care. 14:33 Patient left the ED. sv Signatures: Dispatcher [employer] EDMS Iker Ceja jb1 Kiah Toussaint, RN RN Balbir Rawls MD MD cha Martinez, Amelia as Gonzales, Amanda, pomologist EKG Tat1 Jenna Dent, SIMON MONTES hb
--- NOTE | 2018-07-22 12:52 | EDPHYS ---
Physician Documentation [facility] Name: Patricia Posey Age: 33 yrs Sex: Female : 1985 Arrival Date: 07/22/2018 Time: 09:56 Bed 7 Private MD: ED Physician Balbir Nicholson HPI: 07/22 10:50 This 33 yrs old Female presents to ER via Ambulatory with complaints of Chest sara Pain. 10:50 The patient or guardian reports chest pain that is located primarily in the substernal sara area. The pain does not radiate. Associated signs and symptoms: Pertinent positives: shortness of breath. The chest pain is described as sharp. Duration: The patient or guardian reports multiple episodes, that have now resolved. Modifying factors: The symptoms are alleviated by nothing. the symptoms are aggravated by nothing. Severity of pain: At its worst the pain was moderate in the emergency department the pain is unchanged. The patient has not experienced similar symptoms in the past. TRADER FIXED INCOME: 10:09 LMP 07/20/2018 hb Historical: - Allergies: 10:10 NKDA; hb - Home Meds: 10:10 Hydroxyzine Oral [Active]; Zoloft Oral [Active]; hb - PMHx: 10:10 Back pain; Depression; nerves in heart bad; scoliosis; slipped disc in lower sacral hb area- Dr. Elliott states I need sx on it; - PSHx: 10:10 ; Cardiac Ablation; hb - Immunization history:: Adult Immunizations up to date. - Social history:: Smoking status: Patient/guardian denies using tobacco. - Ebola Screening: : No symptoms or risks identified at this time. - Family history:: not pertinent. ROS: 10:50 Constitutional: Negative for fever, chills, and weight loss, Eyes: Negative for injury, sara pain, redness, and discharge, ENT: Negative for injury, pain, and discharge, Neck: Negative for injury, pain, and swelling, Abdomen/GI: Negative for abdominal pain, nausea, vomiting, diarrhea, and constipation, Back: Negative for injury and pain, : Negative for injury, bleeding, discharge, and swelling, MS/Extremity: Negative for injury and deformity, Skin: Negative for injury, rash, and discoloration, Neuro: Negative for headache, weakness, numbness, tingling, and seizure, Psych: Negative for depression, anxiety, suicide ideation, homicidal ideation, and hallucinations, Allergy/Immunology: Negative for hives, rash, and allergies, Endocrine: Negative for neck swelling, polydipsia, polyuria, polyphagia, and marked weight changes, Hematologic/Lymphatic: Negative for swollen nodes, abnormal bleeding, and unusual bruising. 10:50 Cardiovascular: Positive for chest pain. 10:50 Respiratory: Positive for cough. Exam: 10:50 Constitutional: This is a well developed, well nourished patient who is awake, alert, sara and in no acute distress. Head/Face: Normocephalic, atraumatic. Eyes: Pupils equal round and reactive to light, extra-ocular motions intact. Lids and lashes normal. Conjunctiva and sclera are non-icteric and not injected. Cornea within normal limits. Periorbital areas with no swelling, redness, or edema. ENT: Nares patent. No nasal discharge, no septal abnormalities noted. Tympanic membranes are normal and external auditory canals are clear. Oropharynx with no redness, swelling, or masses, exudates, or evidence of obstruction, uvula midline. Mucous membranes moist. Neck: Trachea midline, no thyromegaly or masses palpated, and no cervical lymphadenopathy. Supple, full range of motion without nuchal rigidity, or vertebral point tenderness. No Meningismus. Chest/axilla: Normal chest wall appearance and motion. Nontender with no deformity. No lesions are appreciated. Cardiovascular: Regular rate and rhythm with a normal S1 and S2. No gallops, murmurs, or rubs. Normal PMI, no JVD. No pulse deficits. Respiratory: Lungs have equal breath sounds bilaterally, clear to auscultation and percussion. No rales, rhonchi or wheezes noted. No increased work of breathing, no retractions or nasal flaring. Abdomen/GI: Soft, non-tender, with normal bowel sounds. No distension or tympany. No guarding or rebound. No evidence of tenderness throughout. Back: No spinal tenderness. No costovertebral tenderness. Full range of motion. Skin: Warm, dry with normal turgor. Normal color with no rashes, no lesions, and no evidence of cellulitis. MS/ Extremity: Pulses equal, no cyanosis. Neurovascular intact. Full, normal range of motion. Neuro: Awake and alert, GCS 15, oriented to person, place, time, and situation. Cranial nerves II-XII grossly intact. Motor strength 5/5 in all extremities. Sensory grossly intact. Cerebellar exam normal. Normal gait. Psych: Awake, alert, with orientation to person, place and time. Behavior, mood, and affect are within normal limits. 10:50 Musculoskeletal/extremity: Extremities: all appear grossly normal, with no appreciated pain with palpation, ROM: no acute changes, Circulation is intact in all extremities. Sensation intact. Compartment Syndrome exam of affected extremity: is normal. DVT Exam: No signs of deep vein thrombosis. no pain, no swelling, no tenderness, negative Homans' sign noted on exam, no appreciated bluish discoloration, no erythema, no increased warmth. Vital Signs: 10:09 BP 105 / 67; Pulse 79; Resp 18; Temp 97.9; Pulse Ox 100% on R/A; Pain 7/10; hb 10:55 BP 132 / 92; Pulse 60 MON; Resp 22; Pulse Ox 99% on 2 lpm NC; sv 11:45 BP 114 / 73; Pulse 63; Resp 18; Pulse Ox 99% on 2 lpm NC; sv 12:22 BP 88 / 67; Pulse 59; Resp 15; Pulse Ox 100% ; sv 13:13 BP 99 / 70; Pulse 76; Resp 17; Pulse Ox 98% on R/A; sv 13:30 BP 113 / 98; Pulse 100; Resp 17; Pulse Ox 96% on R/A; sv 13:57 BP 100 / 65 Supine; Pulse 63; jb1 13:57 BP 107 / 80 Sitting; Pulse 76; jb1 13:57 BP 105 / 78 Standing; Pulse 79; jb1 10:55 Bigeminy noted. sv MDM: 10:18 Patient medically screened. [facility] 10:50 Data reviewed: vital signs, nurses notes, lab test result(s), EKG, radiologic studies, sara plain films. 07/22 10:11 Order name: Basic Metabolic Panel; Complete Time: 12:42 sv 07/22 10:11 Order name: CBC with Diff; Complete Time: 12:42 sv 07/22 10:11 Order name: LFT's; Complete Time: 12:42 sv 07/22 10:11 Order name: Magnesium; Complete Time: 12:42 sv 07/22 10:11 Order name: NT PRO-BNP; Complete Time: 12:42 sv 07/22 10:11 Order name: PT-INR; Complete Time: 12:42 sv 07/22 10:11 Order name: Troponin (emerg Dept Use Only); Complete Time: 12:42 sv 07/22 10:19 Order name: Lipase; Complete Time: 12:42 sara 07/22 10:38 Order name: Urine Microscopic Only; Complete Time: 12:42 07/22 10:49 Order name: Urine Dipstick--Ancillary (enter results); Complete Time: 12:42 bd 07/22 10:49 Order name: Urine --Ancillary (enter results); Complete Time: 12:42 bd 07/22 10:50 Order name: D-Dimer; Complete Time: 12:42 sara 07/22 10:50 Order name: UDS; Complete Time: 12:42 sara 07/22 10:09 Order name: EKG; Complete Time: 10:34 sv 07/22 10:09 Order name: EKG - Nurse/Tech; Complete Time: 10:31 sv 07/22 10:11 Order name: Cardiac monitoring; Complete Time: 10:11 sv 07/22 10:11 Order name: IV Saline Lock; Complete Time: 10:31 sv 07/22 10:11 Order name: Labs collected and sent; Complete Time: 10:31 sv 07/22 10:11 Order name: O2 Per Protocol; Complete Time: 10:11 sv 07/22 10:11 Order name: O2 Sat Monitoring; Complete Time: 10:11 sv 07/22 10:32 Order name: Chest Single View; Complete Time: 12:42 EDMS 07/22 12:51 Order name: Orthostatics; Complete Time: 13:58 [facility] Administered Medications: 10:54 Drug: Aspirin 162 mg Route: PO; sv 11:05 Follow up: Response: No adverse reaction sv 12:33 Drug: NS 0.9% 1000 ml Route: IV; Rate: 1000 ml; Site: left antecubital; sv 13:25 Follow up: Response: No adverse reaction; IV Status: Completed infusion; IV Intake: sv 1000ml Disposition: 07/22/18 12:51 Discharged to Home. Impression: Palpitations, Chest pain, unspecified. - Condition is Stable. - Discharge Instructions: Nonspecific Chest Pain, Holter Monitoring, Palpitations, Nonspecific Chest Pain, [id number], Aspirin and Your Heart, Palpitations, [id number]-[id number]. - School release form, Work release form, Medication Reconciliation Form, Thank You Letter, Antibiotic Education, Prescription Opioid Use form. - Follow up: Private Physician; When: 2 - 3 days; Reason: Recheck today's complaints, Continuance of care, Re-evaluation by your physician. Follow up: Jack Chisholm MD; When: 2 - 3 days; Reason: Recheck today's complaints, Continuance of care, Re-evaluation by your physician. - Problem is new. - Symptoms have improved. Signatures: Dispatcher [employer] [facility] Kiah Toussaint RN RN Balbir Rawls MD MD cha Baxter, Heather, RN RN Corrections: (The following items were deleted from the chart) 10:49 10:34 Chest Single View+RAD.RAD.BRZ ordered. [facility] 12:51 12:51 07/22/2018 12:51 Discharged to Home. Impression: Palpitations. Condition is sara Stable. Forms are Medication Reconciliation Form, Thank You Letter, Antibiotic Education, Prescription Opioid Use. Follow up: Private Physician; When: 2 - 3 days; Reason: Recheck today's complaints, Continuance of care, Re-evaluation by your physician. Follow up: Jack Chisholm; When: 2 - 3 days; Reason: Recheck today's complaints, Continuance of care, Re-evaluation by your physician. Problem is new. Symptoms have improved. sara 14:33 12:51 07/22/2018 12:51 Discharged to Home. Impression: Palpitations; Chest pain, sv unspecified. Condition is Stable. Forms are Medication Reconciliation Form, Thank You Letter, Antibiotic Education, Prescription Opioid Use. Follow up: Private Physician; When: 2 - 3 days; Reason: Recheck today's complaints, Continuance of care, Re-evaluation by your physician. Follow up: Jack Chisholm; When: 2 - 3 days; Reason: Recheck today's complaints, Continuance of care, Re-evaluation by your physician. Problem is new. Symptoms have improved. sara
--- NOTE | 2018-07-22 15:01 | EKG ---
Test Date: 2018-07-22 Test Time: 10:03:58 Technical Information Specialist: KIM MEASUREMENT RESULTS: Intervals: Rate: 83 [place]: 120 QRSD: 78 QT: 378 QTc: 444 [place]: P: 50 [place]: 120 QRS: 55 T: 33 INTERPRETIVE STATEMENTS: Normal sinus rhythm Normal ECG No previous ECG available for comparison Electronically Signed On 07-22-18 15:00:49 EXPORT PACKER by Jack Chisholm
[2018-07-22 15:49] VITALS: TEMP 97.9
[2018-07-22 15:55] VITALS: O2SAT 96
[2018-07-22 15:56] VITALS: BP 105/78
== END 2018-07-22 14:33 | disposition home or self-care (01) ==
LOC: ER 09:55
DX: R07.9 Chest pain, unspecified (principal); R00.2 Palpitations; F32.9 Major depressive disorder, single episode, unspecified; Z79.899 Other long term (current) drug therapy
CPT/HCPCS: 36415; 71045; 80048; 80076; 80307; 81003; 81015; 81025; 83690; 83735; 83880; 84484; 85025; 85379; 85610; 93005; 96360; 99285; J7030

== ENCOUNTER 2018-10-12 09:52 | Emergency (ER) | payer MEDICAID ==
--- OUTSIDE RECORDS SUMMARY | 2018-10-12 09:55 | XMS REPORT ---
:1985 Author Organization [employer] Care Team Providers Name Role Phone Jacoby Bajwa Provider Role Unavailable Allergies No Known Allergies Problems Problem Type Condition Code Onset Dates Condition Status Problem PTSD (post-traumatic stress F43.10 Active disorder) Problem Atrial fibrillation status post I48.91 Active cardioversion Problem Lumbar degenerative disc disease M51.36 Active Assessment PTSD (post-traumatic stress F43.10 Active disorder) Medications Medication Code Code Instructions Start End Status Dosage System Date Date HydrOXYzine HCl NDC 51152853817 50 MG Orally March 18, Active 1 tablet every 8 hrs 2017 as needed Sertraline HCl ND 68499621451 50 MG Orally March 18, Active 1 tablet Once a day 2018 Results No Known Results Summary Purpose [employer] Submission
--- OUTSIDE RECORDS SUMMARY | 2018-10-12 09:55 | XMS REPORT ---
:1985 [facility] Address [address] [place] [address] Dr. Victor. [address] [place] [id number] Care Team Providers Name Role Phone UNKNOWN, REFFERING Primary Care Provider Unavailable Problems This patient has no known problems. Allergies, Adverse Reactions, Alerts This patient has no known allergies or adverse reactions. Medications This patient has no known medications. Encounters Start End Encounter Admission Attending Care Care Encounter Date/Time Date/Time Type Type Clinicians Facility Department ID 2017-03-13 2017-03-13 Emergency E [facility] MED [id number] 16:05:00 16:05:00
--- OUTSIDE RECORDS SUMMARY | 2018-10-12 09:55 | XMS REPORT ---
[...] Dosage System Date Date Sertraline HCl [facility] 35268985686 50 MG Orally March 18, Active 1 tablet Once a day 2017 HydrOXYzine HCl [facility] [id number] 50 MG Orally March 18, Active 1 tablet every 8 hrs 2018 as needed Results No Known Results Summary Purpose [employer] Submission
--- OUTSIDE RECORDS SUMMARY | 2018-10-12 09:55 | XMS REPORT ---
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
[2018-10-12] MEDS ORDERED: NA CHLORIDE 0.9% 500 ML ONE (10:48)
[2018-10-12] MEDS ORDERED: FENTANYL CITR 100 MCG/2 ML ONE (10:48)
[2018-10-12] MEDS ORDERED: NA CHLORIDE 0.9% 1,000 ML ONE (10:49)
[2018-10-12 10:54] LABS: Absolute Monocytes 0.5 K/uL (0.1-1.3); Absolute Neutrophil 4.6 K/uL (1.8-8.0); Basophils % 0.6 % (0-1.3); Eosinophils % 1.9 % (0-4.4); Hematocrit 39.3 % (36.0-45.0); Lymphocytes % 27.9 % (15.3-44.8); MPV 9.9 fL (7.6-11.3); Monocytes % 6.4 % (3.3-12.3); RBC Red Blood Cell Count 4.51 M/uL (3.86-4.86)
[2018-10-12 11:08] LABS: Protime INR 0.94
[2018-10-12 11:09] LABS: Barbiturates NEGATIVE (NEGATIVE); Benzodiazepines NEGATIVE (NEGATIVE); Cocaine NEGATIVE (NEGATIVE); METHAMPHETAM NEGATIVE (NEGATIVE); Methadone NEGATIVE (NEGATIVE); Opiates NEGATIVE (NEGATIVE); Phencyclidine NEGATIVE (NEGATIVE); THC Cannibis NEGATIVE (NEGATIVE)
[2018-10-12 11:12] LABS: ALT/SGPT 18 U/L (12-78); AST/SGOT 16 U/L (15-37); Albumin 3.7 g/dL (3.4-5.0); Alkaline Phosphatase 75 U/L (45-117); BUN Blood Urea Nitrogen 11 mg/dL (7-18); Bicarbonate 25 mmol/L (21-32); Bilirubin Direct < 0.1 mg/dL (0-0.2); Bilirubin Total 0.2 mg/dL (0.2-1.0); Glucose Level 90 mg/dL (74-106); NT PRO-BNP 97 pg/mL (<125); Potassium 3.8 mmol/L (3.5-5.1); Protein, Total 7.3 g/dL (6.4-8.2); Sodium Level 139 mmol/L (136-145); Troponin (Emerg Dept Use Only) < 0.02 ng/mL (0.0-0.045)
[2018-10-12] MEDS ORDERED: ONDANSETRON 4 MG/2 ML VIAL ONE (11:17)
--- NOTE | 2018-10-12 11:39 | RAD REPORT ---
EXAM DESCRIPTION: RAD - Chest Single View - 10/12/2018 11:25 am CLINICAL HISTORY: CHEST PAIN Chest pain. COMPARISON: Chest Single View dated 07/22/2018; Chest Single View dated 07/29/2017; Chest Single Vie w dated 07/17/2017; Chest Pa And Lat (2 Views) dated 09/24/2016 FINDINGS: Portable technique limits examination quality. The lungs are grossly clear. The heart is normal in size. No displaced fractures. IMPRESSION: No acute intrathoracic process suspected.
[2018-10-12] MEDS ORDERED: CYCLOBENZAPRINE 10 MG TAB ONE (12:23)
[2018-10-12] MEDS ORDERED: KETOROLAC 30 MG/ML INJ ONE (12:24)
[2018-10-12] MEDS ORDERED: HYDROCODONE/APAP 7.5/325 MG TAB ONE (12:24)
[2018-10-12 14:26] LABS: Urine Blood 3+ (NEG); Urine Glucose NEGATIVE (NEG); Urine Protein TRACE (NEG); Urine pH 5.5 (5.0-7.0)
--- NOTE | 2018-10-12 15:04 | EDPHYS ---
Physician Documentation [facility] Name: Patricia Dsouza Age: 33 yrs Sex: Female : 1985 Arrival Date: 10/12/2018 Time: 09:54 Bed 15 Private MD: Jacoby Bajwa ED Physician Balbir Nicholson HPI: 10/12 10:30 This 33 yrs old Female presents to ER via Ambulatory with complaints of Chest cp Pain, Back Pain. 10:30 The patient or guardian reports chest pain that is located primarily in the under left cp breast. The pain radiates to left back. 10:30 Associated signs and symptoms: Pertinent positives: shortness of breath, Pertinent cp negatives: abdominal pain, cough, headache, lower extremity pain, lower extremity swelling, syncope, vomiting, hemoptysis. The chest pain is described as sharp. Duration: The patient or guardian reports multiple episodes, that are intermittent, that wax and wane. Severity of pain: At its worst the pain was a 10 / 10. 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 Elliott states I need sx on it; - PSHx: 14:20 ; Cardiac Ablation; ls4 - Immunization history:: Adult Immunizations up to date. - Ebola Screening: : No symptoms or risks identified at this time. - Social history:: Smoking status: Patient/guardian denies using tobacco. ROS: 10:35 Constitutional: Negative for body aches, chills, fever, poor PO intake. cp 10:35 Eyes: Negative for injury, pain, redness, and discharge. cp 10:35 ENT: Negative for drainage from ear(s), ear pain, sore throat, difficulty swallowing, difficulty handling secretions. 10:35 Neck: Negative for pain with movement, pain at rest, stiffness. 10:35 Cardiovascular: Positive for chest pain, Negative for edema, palpitations. 10:35 Respiratory: Positive for shortness of breath, Negative for cough, wheezing. 10:35 Abdomen/GI: Negative for abdominal pain, nausea, vomiting, and diarrhea. 10:35 Back: Positive for radiated pain, Negative for injury or acute deformity, decreased range of motion. 10:35 : Negative for urinary symptoms. 10:35 Skin: Negative for cellulitis, rash. 10:35 Neuro: Negative for altered mental status, headache, syncope, near syncope, weakness. 10:35 All other systems are negative. Exam: 10:22 ECG was reviewed by the Attending Physician. cp 10:40 Constitutional: The patient appears in no acute distress, alert, awake, cp non-diaphoretic, non-toxic, well developed, well nourished, uncomfortable. 10:40 Head/Face: Normocephalic, atraumatic. Eyes: Pupils equal round and reactive to light, cp extra-ocular motions intact. Lids and lashes normal. Conjunctiva and sclera are non-icteric and not injected. Cornea within normal limits. Periorbital areas with no swelling, redness, or edema. ENT: Nares patent. No nasal discharge, no septal abnormalities noted. Tympanic membranes are normal and external auditory canals are clear. Oropharynx with no redness, swelling, or masses, exudates, or evidence of obstruction, uvula midline. Mucous membranes moist. Neck: Trachea midline, no thyromegaly or masses palpated, and no cervical lymphadenopathy. Supple, full range of motion without nuchal rigidity, or vertebral point tenderness. No Meningismus. 10:40 Chest/axilla: Inspection: normal, Palpation: crepitus, is not appreciated, tenderness, that is moderate, of the below left breast, that partially reproduces the patient's complaints. 10:40 Cardiovascular: Rate: normal, Rhythm: regular, Pulses: Pulses are 2+ in right radial artery and left radial artery. Heart sounds: murmur, not appreciated, rub, not appreciated, gallop, not appreciated, Edema: is not appreciated, JVD: is not appreciated. 10:40 Respiratory: the patient does not display signs of respiratory distress, Respirations: normal, no use of accessory muscles, no retractions, no splinting, no tachypnea, labored breathing, is not present, Breath sounds: are clear throughout, no decreased breath sounds, no stridor, no wheezing. 10:40 Abdomen/GI: Inspection: abdomen appears normal, Bowel sounds: active, all quadrants, Palpation: abdomen is soft and non-tender, in all quadrants, rebound tenderness, is not appreciated, voluntary guarding, is not appreciated, involuntary guarding, is not appreciated. 10:40 Back: pain, that is moderate, of the left subscapular area, ROM is normal. 10:40 Skin: cellulitis, is not appreciated, no rash present. 10:40 Neuro: Orientation: to person, place \T\ time. Mentation: is normal, Cerebellar function: is grossly normal, Motor: moves all fours, strength is normal, Sensation: is normal. 15:02 ECG was reviewed by the Attending Physician. cp Vital Signs: 10:31 BP 109 / 74; Pulse 63; Resp 20; Temp 98.4(O); Pulse Ox 99% on R/A; Pain 10/10; ls4 11:30 BP 101 / 65; Pulse 63; Resp 16; Pulse Ox 99% on R/A; Pain 3/10; ls4 12:30 BP 104 / 74; Pulse 63; Resp 16; Pulse Ox 99% on R/A; Pain 3/10; ls4 13:30 BP 102 / 77; Pulse 62; Resp 16; Temp 98.4; Pulse Ox 98% on R/A; Pain 0/10; ls4 MDM: 10:11 Patient medically screened. cp 11:00 Differential diagnosis: acute pericarditis, anxiety, chest wall pain, cholecystitis, cp Cholelithiasis costochondritis, esophagitis, gastritis, pancreatitis, pericarditis, pleurisy, pneumonia, pneumothorax, pulmonary embolus, stable angina, unstable angina. 15:00 Data reviewed: vital signs, nurses notes, lab test result(s), EKG, radiologic studies, cp plain films. 15:00 Test interpretation: by ED physician or midlevel provider: ECG, plain radiologic cp studies. Counseling: I had a detailed discussion with the patient and/or guardian regarding: the historical points, exam findings, and any diagnostic results supporting the discharge/admit diagnosis, lab results, radiology results, the need for outpatient follow up, a organizational development consultant, to return to the emergency department if symptoms worsen or persist or if there are any questions or concerns that arise at home. Response to treatment: the patient's symptoms have markedly improved after treatment, VSS. Pain markedly improved, and as a result, I will discharge patient. 10/12 10:24 Order name: Basic Metabolic Panel; Complete Time: 11:53 cp 02/03 11:53 Interpretation: Normal except: CL 108; GFR 68. cp 02/03 10:24 Order name: CBC with Diff; Complete Time: 11:53 cp 02/03 10:24 Order name: LFT's; Complete Time: 11:53 cp 02/03 11:53 Interpretation: Normal except: GLOB 3.6; A/G 1.0. cp 02/03 10:24 Order name: Magnesium; Complete Time: 11:53 cp 02/03 10:24 Order name: NT PRO-BNP; Complete Time: 11:53 cp 02/03 10:24 Order name: PT-INR; Complete Time: 11:53 cp 02/03 10:24 Order name: Troponin (emerg Dept Use Only); Complete Time: 11:53 cp 02/03 11:53 Interpretation: TROPED < 0.02; Reviewed. cp 02/03 10:24 Order name: XRAY Chest (1 view); Complete Time: 11:53 cp 02/03 10:24 Order name: D-Dimer; Complete Time: 11:53 cp 02/03 10:24 Order name: UDS; Complete Time: 11:53 cp 02/03 10:43 Order name: Urine Dipstick--Ancillary (enter results); Complete Time: 14:45 eb 02/ 10:43 Order name: Urine --Ancillary (enter results); Complete Time: 14:45 eb 02/03 13:44 Order name: Troponin I; Complete Time: 14:45 cp 02/03 10:07 Order name: EKG; Complete Time: 10:08 ls4 10/12 10:07 Order name: EKG - Nurse/Tech; Complete Time: 12:58 ls4 / 10:24 Order name: Cardiac monitoring; Complete Time: 10:36 cp 02/03 10:24 Order name: IV Saline Lock; Complete Time: 10:36 cp 02/03 10:24 Order name: Labs collected and sent; Complete Time: 10:36 cp 02/03 10:24 Order name: O2 Per Protocol; Complete Time: 10:36 cp 02/03 10:24 Order name: O2 Sat Monitoring; Complete Time: 10:36 cp 02/03 10:24 Order name: Urine Dipstick-Ancillary (obtain specimen); Complete Time: 10:41 cp 02/03 10:24 Order name: Urine Test (obtain specimen); Complete Time: 10:41 cp 10/12 13:44 Order name: EKG; Complete Time: 13:44 cp 10/12 13:44 Order name: EKG - Nurse/Tech; Complete Time: 13:47 cp EC:22 Rate is 75 beats/min. Rhythm is regular. CT interval is normal. QRS interval is normal. cp QT interval is normal. Interpreted by me. Reviewed by me. 15:02 Rate is 58 beats/min. Rhythm is regular. CT interval is normal. QRS interval is normal. cp QT interval is normal. Interpreted by me. Reviewed by me. Administered Medications: 10:42 Drug: NS 0.9% 1000 ml Route: IV; Rate: 125 ml/hr; Site: right forearm; ls4 10:43 Drug: fentaNYL (PF) 25 mcg Route: IVP; Site: right forearm; ls4 11:01 Follow up: Response: No adverse reaction; Pain is decreased ls4 10:43 Drug: NS 0.9% 500 ml Route: IV; Rate: bolus; Site: right forearm; ls4 11:19 Drug: Zofran 4 mg Route: IVP; Site: right forearm; ls4 12:57 Follow up: Response: No adverse reaction; Marked relief of symptoms ls4 12:21 Drug: TORadol 30 mg Route: IVP; Site: right forearm; ls4 12:57 Follow up: Response: No adverse reaction; Marked relief of symptoms ls4 12:21 Drug: Hydrocodone-Acetaminophen (7.5 mg-325 mg) 1 tabs Route: PO; ls4 12:57 Follow up: Response: No adverse reaction; Marked relief of symptoms ls4 12:21 Drug: Flexeril 10 mg Route: PO; ls4 12:56 Follow up: Response: No adverse reaction; Marked relief of symptoms ls4 Disposition: 10/13 09:17 Co-signature as Attending Physician, Balbir Nicholson MD I agree with the assessment and sara plan of care. Disposition: 10/12/18 15:03 Discharged to Home. Impression: Other chest pain. - Condition is Stable. - Discharge Instructions: Nonspecific Chest Pain, Chest Wall Pain. - Prescriptions for Naprosyn 500 mg Oral Tablet - take 1 tablet by ORAL route 2 times per day take with food; 20 tablet. Pepcid 20 mg Oral Tablet - take 1 tablet by ORAL route every 12 hours for 10 days; 20 tablet. Tramadol 50 mg Oral Tablet - take 1 tablet by ORAL route every 8 hours as needed; 12 tablet. - Medication Reconciliation Form, Thank You Letter, Antibiotic Education, Prescription Opioid Use form. - Follow up: Private Physician; When: 1 - 2 days; Reason: Recheck today's complaints. - Problem is new. - Symptoms have improved. Signatures: Dispatcher [employer]ID Balbir Nicholson MD MD cha Williams, Irene RN RN iw Meggan Dyer RN RN aa5 Balbir Petit, PA PA cp Sabina Lopez RN RN ls4 Corrections: (The following items were deleted from the chart) 10/12 10:34 10:32 This 33 yrs old Female presents to ER via Ambulatory with complaints of cp Chest Pain, Back Pain. cp 14:20 10:00 PSHx: ; aa5 ls4 14:20 10:00 PSHx: Cardiac Ablation; aa5 ls4 15:33 15:03 10/12/2018 15:03 Discharged to Home. Impression: Other chest pain. Condition is iw Stable. Forms are Medication Reconciliation Form, Thank You Letter, Antibiotic Education, Prescription Opioid Use. Follow up: Private Physician; When: 1 - 2 days; Reason: Recheck today's complaints. Problem is new. Symptoms have improved. cp
--- NOTE | 2018-10-12 15:04 | ER ---
Nurse's Notes [facility] Name: Patricia Dsouza Age: 33 yrs Sex: Female : 1985 Arrival Date: 10/12/2018 Time: 09:54 Bed 15 Private MD: Jacoby Bajwa Diagnosis: Other chest pain Presentation: 10/12 10:00 Presenting complaint: Patient states: pain to left side of chest and left scapula. Pt aa5 states "the doctor doubled my medication about 3 days ago but it's not working". Pt states "I also have an echocardiogram scheduled for this week". 10:00 Transition of care: patient was not received from another setting of care. Onset of aa5 symptoms was September 2018. Risk Assessment: Do you want to hurt yourself or someone else? Patient reports no desire to harm self or others. Initial Sepsis Screen: Does the patient meet any 2 criteria? No. Patient's initial sepsis screen is negative. Does the patient have a suspected source of infection? No. Patient's initial sepsis screen is negative. Care prior to arrival: None. 10:00 Method Of Arrival: Ambulatory aa5 10:00 Acuity: DARION 3 aa5 Triage Assessment: 10:09 General: Appears in no apparent distress. Behavior is calm, cooperative. ls4 APARTMENT COMMUNITY MANAGER: 10:31 LMP N/A - control method, pt has menses now ls4 Historical: - Allergies: 10:00 NKDA; aa5 - PMHx: 10:00 Back pain; Depression; nerves in heart bad; scoliosis; slipped disc in lower sacral aa5 area- Dr. Elliott states I need sx on it; - PSHx: 14:20 ; Cardiac Ablation; ls4 - Immunization history:: Adult Immunizations up to date. - Ebola Screening: : No symptoms or risks identified at this time. - Social history:: Smoking status: Patient/guardian denies using tobacco. Screenin:33 Abuse screen: Denies threats or abuse. Denies injuries from another. Nutritional ls4 screening: No deficits noted. Tuberculosis screening: No symptoms or risk factors identified. Fall Risk None identified. Assessment: 10:34 Pain: Complains of pain in left scapular area Pain radiates to left arm Pain currently ls4 is 10 out of 10 on a pain scale. at worst was 10 out of 10 on a pain scale. Quality of pain is described as sharp, Pain began 2-3 days ago. Cardiovascular: Reports chest pain, Denies diaphoresis, fatigue, lightheadedness, nausea, palpitations, shortness of breath, syncope, vomiting, Heart tones S1 S2 Capillary refill < 3 seconds Patient's skin is warm and dry. Rhythm is sinus rhythm with unifocal PVCs. 14:17 Reassessment: Patient appears in no apparent distress at this time. Patient and/or ls4 family updated on plan of care and expected duration. Pain level reassessed. Patient is alert, oriented x 3, equal unlabored respirations, skin warm/dry/pink. Vital Signs: 10:31 BP 109 / 74; Pulse 63; Resp 20; Temp 98.4(O); Pulse Ox 99% on R/A; Pain 10/10; ls4 11:30 BP 101 / 65; Pulse 63; Resp 16; Pulse Ox 99% on R/A; Pain 3/10; ls4 12:30 BP 104 / 74; Pulse 63; Resp 16; Pulse Ox 99% on R/A; Pain 3/10; ls4 13:30 BP 102 / 77; Pulse 62; Resp 16; Temp 98.4; Pulse Ox 98% on R/A; Pain 0/10; ls4 ED Course: 09:54 Patient arrived in ED. rg4 09:55 Jacoby Bajwa MD is Private Physician. rg4 10:00 Arm band placed on Patient placed in an exam room, on a stretcher. aa5 10:05 Triage completed. aa5 10:07 Sabina Lopez RN is Primary Nurse. ls4 10:09 Balbir Petit PA is PHCP. cp 10:10 Balbir Nicholson MD is Attending Physician. cp 10:23 EKG done, by ED staff, reviewed by Balbir BAILON. mh5 10:24 Patient has correct armband on for positive identification. Placed in gown. Bed in low mh5 position. Call light in reach. Side rails up X 1. Adult w/ patient. Warm blanket given. hospital monitor on. Pulse ox on. NIBP on. 10:33 No provider procedures requiring assistance completed. Inserted saline lock: 20 gauge ls4 in left forearm, using aseptic technique. Patient maintains SpO2 saturation greater than 95% on room air. 10:41 UDS [facility] 10:41 Urine collected: clean catch specimen, xavier colored. 5 11:25 XRAY Chest (1 view) In Process Unspecified. EDMS 15:07 EKG done, by ED staff. 5 Administered Medications: 10:42 Drug: NS 0.9% 1000 ml Route: IV; Rate: 125 ml/hr; Site: right forearm; ls4 10:43 Drug: fentaNYL (PF) 25 mcg Route: IVP; Site: right forearm; ls4 11:01 Follow up: Response: No adverse reaction; Pain is decreased ls4 10:43 Drug: NS 0.9% 500 ml Route: IV; Rate: bolus; Site: right forearm; ls4 11:19 Drug: Zofran 4 mg Route: IVP; Site: right forearm; ls4 12:57 Follow up: Response: No adverse reaction; Marked relief of symptoms ls4 12:21 Drug: TORadol 30 mg Route: IVP; Site: right forearm; ls4 12:57 Follow up: Response: No adverse reaction; Marked relief of symptoms ls4 12:21 Drug: Hydrocodone-Acetaminophen (7.5 mg-325 mg) 1 tabs Route: PO; ls4 12:57 Follow up: Response: No adverse reaction; Marked relief of symptoms ls4 12:21 Drug: Flexeril 10 mg Route: PO; ls4 12:56 Follow up: Response: No adverse reaction; Marked relief of symptoms ls4 Outcome: 15:03 Discharge ordered by MD. garza 15:33 Patient left the ED. Signatures: Dispatcher [employer] EDMS Saira Irving RN RN iw Meggan Dyer RN RN aa5 Balbir Petit PA PA cp Garcia, Rubi rg4 Martinez, Maria Sabina Garner RN RN ls4 Corrections: (The following items were deleted from the chart) 10:09 10:00 Presenting complaint: Patient states: pain to left side of chest and left aa5 scapula. Pt states "I aa5 14:20 10:00 PSHx: ; aa5 ls4 14:20 10:00 PSHx: Cardiac Ablation; aa5 ls4
[2018-10-12 15:51] VITALS: TEMP 98.4
[2018-10-12 15:55] VITALS: BP 102/77; O2SAT 98
--- NOTE | 2018-10-13 07:24 | EKG ---
Test Date: 2018-10-12 Test Time: 10:15:53 Electronic Data Processing Auditor: DEL MEASUREMENT RESULTS: Intervals: Rate: 75 IA: 122 QRSD: 96 QT: 408 QTc: 455 [place]: P: 53 IA: 122 QRS: 83 T: 49 INTERPRETIVE STATEMENTS: Sinus rhythm with premature ventricular complexes Otherwise normal ECG Compared to ECG 07/29/2017 05:43:20 Atrial premature complex(es) now present Premature ventricular beat(s) now present Short IA interval no longer present Electronically Signed On 10-13-18 07:21:09 INFANTRY UNIT LEADER by Spencer Baca
--- NOTE | 2018-10-13 07:24 | EKG ---
Test Date: 2018-10-12 Test Time: 10:16:23 Child Psychology Teacher: DEL MEASUREMENT RESULTS: Intervals: Rate: 75 NC: 134 QRSD: 92 QT: 404 QTc: 451 [place]: P: 66 NC: 134 QRS: 82 T: 40 INTERPRETIVE STATEMENTS: Sinus rhythm with occasional premature ventricular complexes Otherwise normal ECG Compared to ECG 10/12/2018 10:15:53 Ventricular premature complex(es) now present Atrial premature complex(es) no longer present Electronically Signed On 10-13-18 07:20:21 OUTSOLE TACKER by Spencer Baca
--- NOTE | 2018-10-13 09:26 | EKG ---
Test Date: 2018-10-12 Test Time: 14:55:35 Visiting Teacher: MARLENA MEASUREMENT RESULTS: Intervals: Rate: 58 KS: 136 QRSD: 96 QT: 424 QTc: 416 [place]: P: 34 KS: 136 QRS: 71 T: 44 INTERPRETIVE STATEMENTS: Sinus bradycardia Low voltage QRS Abnormal ECG Compared to ECG 10/12/2018 10:16:23 Low QRS voltage now present Sinus rhythm no longer present Ventricular premature complex(es) no longer present Electronically Signed On 10-13-18 09:25:48 INSURANCE CASE MANAGER by Spencer Baca
== END 2018-10-12 15:33 | disposition home or self-care (01) ==
LOC: ER 09:52
DX: R07.89 Other chest pain (principal)
CPT/HCPCS: 36415; 71045; 80048; 80076; 80307; 81003; 81025; 83735; 83880; 84484; 85025; 85379; 85610; 93005; 96374; 96375; 99285; J2405; J3010; J7030

== ENCOUNTER 2019-10-06 12:18 | Emergency (ER) | payer MEDICAID ==
--- OUTSIDE RECORDS SUMMARY | 2019-10-06 12:19 | XMS REPORT ---
:1985 Author Organization [facility] Address [address] [place] [address] [address]. [address]. [address] [place] [address] Care Team Providers Name Role Phone UNKNOWN, REFFERING Primary Care Provider Unavailable Problems This patient has no known problems. Allergies, Adverse Reactions, Alerts This patient has no known allergies or adverse reactions. Medications This patient has no known medications. Encounters Start End Encounter Admission Attending Care Care Encounter Date/Time Date/Time Type Type Clinicians Facility Department ID 2017-03-13 2017-03-13 Emergency E [facility] MED [id number] 16:05:00 16:05:00
--- OUTSIDE RECORDS SUMMARY | 2019-10-06 12:20 | XMS REPORT | Summary of Care ---
:1985 Author Organization [address] [address] Care Team Providers Name Role Phone Jacoby Bajwa Insurance Hmo Pcp, Patient Does Not Have A Primary Care Provider Reason for Visit Reason Comments Refill Request Encounter Details Date Type Department Care Team Description 05/18/2019 Telephone [facility] Cardiology- Rom Dupont MD Refill Request [address] [address] [place] [address] [address] [phone] [place] [address] [phone] Allergies No Known Allergiesdocumented as of this encounter (statuses as of 05/19/2019) Medications Medication Sig Dispensed Refills Start Date End Date Status doxycycline Take 1 Cap by 20 Cap 0 03/08/2015 Active (VIBRAMYCIN) 100 mg mouth 2 (two) capsule times daily. acetaminophen-codei Take 1 Tab by 12 Tab 0 03/08/2015 Active ne (TYLENOL-CODEINE mouth every 4 #3) 300-30 mg (four) hours tablet as needed for Pain (scale 4-6). sertraline HCl Take by 0 Active (ZOLOFT ORAL) mouth daily. hydrOXYzine 10 mg Take 10 mg by 0 Active tablet mouth daily. flecainide 100 mg Take 1 tablet 60 tablet 5 05/19/2019 Active tabletIndications: by mouth 2 PVC (premature (two) times ventricular daily. contraction) flecainide 100 mg Take 1 tablet 60 tablet 3 10/30/2018 05/19/2019 Discontinued tabletIndications: by mouth 2 PVC (premature (two) times ventricular daily. contraction) documented as of this encounter (statuses as of 05/19/2019) Active Problems Problem Noted Date S/P cardiac cath 01/29/2018 H/O: 12/08/2013 Mood changes 10/29/2013 Bursitis of foot 10/29/2013 Rubella immune 06/26/2013 Immune to varicella 06/26/2013 Previous delivery, antepartum 06/25/2013 Overview: 33 wk delivery with one term delivery after. 33 wk delivery due to gastroschisis complication-- done; No PROM or PTL reported Family history of GI disorder 06/25/2013 Overview: Son with Gastroschisis; Went to genetics and level II documented as of this encounter (statuses as of 05/19/2019) Resolved Problems Problem Noted Date Resolved Date delivery delivered 12/18/2013 01/27/2014 Overview: ICD10 Diagnosis Term Hemodialysis Patient Care Specialist Utility Pelvic pressure in , antepartum 12/14/2013 01/27/2014 Other threatened labor, antepartum 12/08/2013 01/27/2014 GBS (group B Streptococcus carrier), +RV culture, currently 12/07/20132013 Overview: Treat IP Rh negative state in antepartum period 11/09/2013 01/27/2014 Overview: Rhogam given at 28 weeks 10/15/2013. IAT- negative Encounter for sterilization 11/09/2013 12/14/2013 Overview: Consent signed. BTL at CS. ICD10 Diagnosis Term Hemodialysis Patient Care Specialist Utility Need for Tdap vaccination 10/15/2013 01/27/2014 Vaginal pressure 09/14/2013 01/27/2014 Bruising 08/18/2013 12/07/2013 Marginal placenta previa 08/10/2013 11/09/2013 Overview: Noted on USG on 08/10/2013. F/U at 32 weeks Yeast infection 06/30/2013 10/15/2013 Overview: Called pt. To use Monistat 7 OTC. 06/30/2013 Rhesus isoimmunization affecting management of mother, 06/26/2013 11/09/2013 antepartum condition Overview: Rhogam given at 28 wks 10/15/2013 High-risk 06/25/2013 01/27/2014 History of section 06/25/2013 12/01/2013 Overview: x2 05/23/2006 primary low transverse c/s 09/16/2007 repeat low transverse c/s via Pfannenstiel ICD10 Diagnosis Term Hemodialysis Patient Care Specialist Utility Nausea and vomiting 06/25/2013 10/15/2013 Needs flu shot 06/25/2013 01/27/2014 Overview: Given 06/25/2013 documented as of this encounter (statuses as of 05/19/2019) Immunizations Name Administration Dates Next Due Influenza Virus Vaccine (3+ yrs) 06/25/2013 Rho (d) Immune Globulin 10/15/2013 Td 09/09/1998 Tdap 10/15/2013 documented as of this encounter Social History Tobacco Use Types Packs/Day Years Used Date Never Smoker Smokeless Tobacco: Never Used Alcohol Use Drinks/Week oz/Week Comments No Sex Assigned at Date Recorded Not on file Job Start Date Occupation Industry Not on file Not on file Not on file Travel History Travel Start Travel End No recent travel history available. documented as of this encounter Last Filed Vital Signs Not on filedocumented in this encounter Plan of Treatment Date Type Specialty Care Team Description 06/02/2019 Appointment Cardiac Electrophysiology Rom Dupont MD [address] [place] [phone] Anesthesia-[facility], Ep Lab Outpt-[facility], Ep Lab Health Maintenance Due Date Last Done Comments VARICELLA VACCINES (1 of 2 - 1998 13+ 2-dose series) PAP SMEAR 06/25/2016 06/25/2013 INFLUENZA VACCINE (#1) 2019 06/25/2013 DTaP,Tdap,and Td Vaccines (3 10/15/2023 10/15/2013, - Td) 09/09/1998 PNEUMOCOCCAL 0-64 YEARS Aged Out No longer eligible based COMBINED SERIES on patient's age to complete this topic documented as of this encounter Results Not on filedocumented in this encounter Visit Diagnoses Diagnosis PVC (premature ventricular contraction) Other premature beats documented in this encounter
--- OUTSIDE RECORDS SUMMARY | 2019-10-06 12:20 | XMS REPORT ---
:1985 Author Organization [employer] Care Team Providers Name Role Phone Madeline Chen Provider Role Unavailable Allergies, Adverse Reactions, Alerts Substance Reaction Event Type N.K.D.A. Info Not Available Non Drug Allergy Problems Problem Type Condition Code Onset Dates Condition Status Problem Atrial fibrillation status post I48.91 Active cardioversion Problem Lumbar degenerative disc disease M51.36 Active Problem PTSD (post-traumatic stress F43.10 Active disorder) Assessment Tinea pedis of right foot B35.3 Active Assessment Ringworm of body B35.4 Active Assessment PTSD (post-traumatic stress F43.10 Active disorder) Assessment Tinea of nail B35.1 Active Problem Tinea pedis of right foot B35.3 Active Problem Ringworm of body B35.4 Active Problem Tinea of nail B35.1 Active Problem Primary insomnia F51.01 Active Problem Neuropathy G62.9 Active Problem Current moderate episode of major F32.1 Active depressive disorder without prior episode Problem Acute pain of right knee M25.561 Active Medications Medication Code Code Instructions Start End Date Status Dosage System Date HydrOXYzine HCl ND 92688614203 50 MG Orally March 18, Active 1 tablet as every 8 hrs 2018 needed Venlafaxine HCl ND 60860605869 75 MG Orally Active 1 tablet ER Once a day with food AZO Cranberry ND 09088535162 250-30 MG Active as directed Orally Sertraline HCl ND 76010072915 50 MG Orally March 18, Active 1 tablet Once a day 2017 Flecainide ND 69264953109 100 MG Orally Active 1 tabs Acetate bid Gabapentin ND 94498207992 300 MG Orally December Active 1 capsule Twice a day 2018 every 12 hours Nystatin ND 08950498154 162758 UNIT/GM Sep 14November Active use small Externally 2019 amt Twice a day Naproxen ND 78931854757 500 MG Orally Active 1 tablet every 24 hrs with food or milk as needed BusPIRone HCl ND 87678585816 10 MG Orally December Active 1 tablet Twice a day 2018 Results No Known Results Summary Purpose [employer] Submission
--- OUTSIDE RECORDS SUMMARY | 2019-10-06 12:20 | XMS REPORT ---
:1985 Author Organization [employer] Care Team Providers Name Role Phone Madeline Chen Provider Role Unavailable Allergies, Adverse Reactions, Alerts Substance Reaction Event Type N.K.D.A. Info Not Available Non Drug Allergy Problems Problem Type Condition Code Onset Dates Condition Status Assessment Neuropathy G62.9 Active Assessment Current moderate episode of major F32.1 Active depressive disorder without prior episode Problem Neuropathy G62.9 Active Problem Primary insomnia F51.01 Active Problem Current moderate episode of major F32.1 Active depressive disorder without prior episode Problem PTSD (post-traumatic stress F43.10 Active disorder) Problem Atrial fibrillation status post I48.91 Active cardioversion Problem Acute pain of right knee M25.561 Active Problem Lumbar degenerative disc disease M51.36 Active Medications Medication Code Code Instructions Start End Status Dosage System Date Date BusPIRone HCl [facility] 42730587822 10 MG Orally December Active 1 tablet Twice a day 2018 AZO Cranberry ND 71921728570 250-30 MG Active as directed Orally HydrOXYzine HCl ND 37104669399 50 MG Orally March 18, Active 1 tablet as every 8 hrs 2018 needed Sertraline HCl ND 40918782901 50 MG Orally March 18, Active 1 tablet Once a day 2017 Naproxen ND 60930903295 500 MG Orally Active 1 tablet every 24 hrs with food or milk as needed Flecainide ND 01299868811 100 MG Orally Active 1 tabs Acetate bid Gabapentin ND 97998391056 300 MG Orally December Active 1 capsule Twice a day 2018 every 12 hours Venlafaxine HCl ND 00211482606 75 MG Orally March 27, Active 1 tablet ER Once a day 2018 with food Results No Known Results Summary Purpose [employer]ClinicalWorks Submission
--- OUTSIDE RECORDS SUMMARY | 2019-10-06 12:20 | XMS REPORT ---
:1985 Author Organization [employer] Care Team Providers Name Role Phone Madeline Chen Provider Role Unavailable Allergies No Known Allergies Problems Problem Type Condition Code Onset Dates Condition Status Problem Neuropathy G62.9 Active Problem Primary insomnia [...]
--- NOTE | 2019-10-06 14:08 | ER ---
Nurse's Notes [facility] Name: Patricia Posey Age: 34 yrs Sex: Female : 1985 Arrival Date: 10/06/2019 Time: 12:19 Bed Waiting [facility] MD: Diagnosis: ED Course: 10/06 12:19 Patient arrived in ED. mr Administered Medications: No medications were administered Outcome: 14:08 Patient left the ED. ca1 Signatures: Siomara Vela Cheryl RN RN ca1
== END 2019-10-06 14:08 | disposition left against medical advice (07) ==
LOC: ER 12:18
DX: Z53.21 Procedure and treatment not carried out due to patient leaving prior to being seen by health care provider (principal)

== ENCOUNTER 2019-10-30 10:25 | Emergency (ER) | payer MEDICAID ==
--- OUTSIDE RECORDS SUMMARY | 2019-10-30 10:27 | XMS REPORT ---
:1985 Author Organization [facility] Address [address] [place] [address] Dr. H[address] [place] [address] Care Team Providers Name Role Phone UNKNOWN, REFFERING Primary Care Provider Unavailable Problems This patient has no known problems. Allergies, Adverse Reactions, Alerts This patient has no known allergies or adverse reactions. Medications This patient has no known medications. Encounters Start End Encounter Admission Attending Care Care Encounter Date/Time Date/Time Type Type Clinicians Facility Department ID 2017-03-13 2017-03-13 Emergency E [facility] MED [id number] 16:05:00 16:05:00
--- OUTSIDE RECORDS SUMMARY | 2019-10-30 10:27 | XMS REPORT ---
[...] Status Dosage System Date Date BusPIRone HCl [facility] 91021648111 10 MG Orally December Active 1 tablet Twice a day 2018 AZO Cranberry ND 75125518042 250-30 MG Active as directed Orally HydrOXYzine HCl ND 32011894412 50 MG Orally March 18, Active 1 tablet as every 8 hrs 2018 needed Sertraline HCl ND 73527917921 50 MG Orally March 18, Active 1 tablet Once a day 2017 Naproxen ND 57758238787 500 MG Orally Active 1 tablet every 24 hrs with food or milk as needed Flecainide ND 11914428575 100 MG Orally Active 1 tabs Acetate bid Gabapentin ND 68295702152 300 MG Orally December Active 1 capsule Twice a day 2018 every 12 hours Venlafaxine HCl ND 42286050418 75 MG Orally March 27, Active 1 tablet ER Once a day 2018 with food Results No Known Results Summary Purpose [employer]ClinicalWorks Submission
--- OUTSIDE RECORDS SUMMARY | 2019-10-30 10:28 | XMS REPORT ---
:1985 Author Organization [employer] Care Team Providers Name Role Phone Madeline Chen Provider Role Unavailable Allergies No Known Allergies Problems Problem Type Condition Code Onset Dates Condition Status Problem PTSD (post-traumatic stress F43.10 Active disorder) Problem Acute pain of right knee M25.561 Active Problem Lumbar degenerative disc disease M51.36 Active Problem Atrial fibrillation status post I48.91 Active cardioversion Problem Ringworm of body B35.4 Active Problem Tinea of nail B35.1 Active Problem Hives L50.9 Active Problem Primary insomnia F51.01 Active Problem Neuropathy G62.9 Active Problem Tinea pedis of right foot B35.3 Active Problem Current moderate episode of major F32.1 Active depressive disorder without prior episode Medications No Known Medications Results No Known Results Summary Purpose [employer]ClinicalWorks Submission
--- OUTSIDE RECORDS SUMMARY | 2019-10-30 10:28 | XMS REPORT ---
[...] Status Dosage System Date HydrOXYzine HCl ND 16309612569 50 MG Orally March 18, Active 1 tablet as every 8 hrs 2018 needed Venlafaxine HCl ND 89945322904 75 MG Orally Active 1 tablet ER Once a day with food AZO Cranberry ND 61112661967 250-30 MG Active as directed Orally Sertraline HCl ND 71030321943 50 MG Orally March 18, Active 1 tablet Once a day 2017 Flecainide ND 03711781682 100 MG Orally Active 1 tabs Acetate bid Gabapentin ND 14860089048 300 MG Orally December Active 1 capsule Twice a day 2018 every 12 hours Nystatin ND 81391562756 890072 UNIT/GM Sep 14November Active use small Externally 2019 amt Twice a day Naproxen ND 17884644648 500 MG Orally Active 1 tablet every 24 hrs with food or milk as needed BusPIRone HCl ND 62563824075 10 MG Orally December Active 1 tablet Twice a day 2018 Results No Known Results Summary Purpose [employer]ClinicalWorks Submission
--- OUTSIDE RECORDS SUMMARY | 2019-10-30 10:28 | XMS REPORT ---
:1985 Author Organization [employer] Care Team Providers Name Role Phone Madeline Chen Provider Role Unavailable Allergies No Known Allergies Problems Problem Type Condition Code Onset Dates Condition Status Problem PTSD (post-traumatic stress F43.10 Active disorder) Problem Acute pain of right knee M25.561 Active Problem Lumbar degenerative disc disease M51.36 Active Assessment Hives L50.9 Active Assessment Current moderate episode of major F32.1 Active depressive disorder without prior episode Problem Atrial fibrillation status post I48.91 Active cardioversion Problem Ringworm of body B35.4 Active Problem Tinea of nail B35.1 Active Problem Hives L50.9 Active Problem Primary insomnia F51.01 Active Problem Neuropathy G62.9 Active Problem Tinea pedis of right foot B35.3 Active Problem Current moderate episode of major F32.1 Active depressive disorder without prior episode Medications Medication Code Code Instructions Start End Date Status Dosage System Date Venlafaxine HCl ND 49688269212 75 MG Orally Active 1 tablet ER Once a day with food BusPIRone HCl ND 63217438626 10 MG Active TAKE 1 TABLET BY MOUTH TWICE DAILY Gabapentin ND 24257035938 300 MG Orally December Active 1 capsule Twice a day 2018 every 12 hours HydrOXYzine HCl ND 58603807719 50 MG Orally March 18, Active 1 tablet as every 8 hrs 2017 needed Flecainide ND 29795007353 100 MG Orally Active 1 tabs Acetate bid Naproxen ND 22049573818 500 MG Orally Active 1 tablet every 24 hrs with food or milk as needed Nystatin ND 70140357042 043505 UNIT/GM Sep 14November Active use small Externally 2019 amt Twice a day AZO Cranberry ND 14120411546 250-30 MG Active as directed Orally PredniSONE NDC 45605637514 50 MG Orally Oct 06, Oct 11, Active 1 tablet Once a day 2019 2019 Results No Known Results Summary Purpose eClinicalWorks Submission
--- NOTE | 2019-10-30 12:31 | EDPHYS ---
Physician Documentation [facility] Name: Patricia Posey Age: 34 yrs Sex: Female : 1985 Arrival Date: 10/30/2019 Time: 10:31 Bed 12 Private MD: ED Physician Andres Alvarez HPI: 10/30 12:27 This 34 yrs old Female presents to ER via Ambulatory with complaints of jmm Cough, Sore Throat, Back Pain, Shoulder Pain. 12:27 The patient or guardian reports cough. Onset: The symptoms/episode began/occurred last jmm night. Modifying factors: The symptoms are alleviated by nothing, the symptoms are aggravated by nothing. This is a 34 year old female with a history of depression that presents to the ED with complaints of cough, congestion, body aches beginning yesterday. Denies vomiting, sore throat. . Historical: - Allergies: 10:48 NKDA; hb - PMHx: 10:48 Back pain; Depression; nerves in heart bad; scoliosis; slipped disc in lower sacral hb area- Dr. Elliott states I need sx on it; - Immunization history:: Adult Immunizations up to date. - Coronavirus screen:: The patient has NOT traveled to [place] in the past 14 days. The patient has NOT had contact with known/suspected case of Coronavirus? Proceed with normal triage procedures. - Social history:: Smoking status: Patient denies any tobacco usage or history of. - Ebola Screening: : No symptoms or risks identified at this time. ROS: 12:27 Constitutional: Positive for body aches, chills. jmm 12:27 Respiratory: Positive for cough. 12:27 Abdomen/GI: Negative for vomiting, diarrhea. 12:27 All other systems are negative. Exam: 12:27 Constitutional: This is a well developed, well nourished patient who is awake, alert, jmm and in no acute distress. Head/Face: atraumatic. Eyes: EOMI, no conjunctival erythema appreciated 12:27 Neck: Trachea midline, Supple Chest/axilla: Normal chest wall appearance and motion. Cardiovascular: Regular rate and rhythm. No edema appreciated 12:27 Back: Normal ROM Skin: General appearance color normal MS/ Extremity: Moves all extremities, no obvious deformities appreciated, no edema noted to the lower extremities Neuro: Awake and alert, normal gait Psych: Behavior is normal, Mood is normal, Patient is cooperative and pleasant 12:27 ENT: Posterior pharynx: erythema, that is mild. 12:27 Cardiovascular: Rate: normal, Rhythm: regular. 12:27 Respiratory: the patient does not display signs of respiratory distress, Respirations: normal, Breath sounds: are clear throughout. 12:27 Abdomen/GI: Inspection: abdomen appears normal, Bowel sounds: normal. Vital Signs: 10:47 BP 114 / 78; Pulse 83; Resp 16; Temp 98.3; Pulse Ox 100% on R/A; Weight 78.93 kg; hb Height 5 ft. 5 in. (165.10 cm); Pain 5/10; 10:47 Body Mass Index 28.95 (78.93 kg, 165.10 cm) hb MDM: 12:20 Patient medically screened. [facility] 12:29 Data reviewed: vital signs, nurses notes. Counseling: I had a detailed discussion with jesse the patient and/or guardian regarding: the historical points, exam findings, and any diagnostic results supporting the discharge/admit diagnosis, lab results, the need for outpatient follow up. ED course: Patient is alert and non toxic in appearance in the ED. No signs of res distress appreciated. Patient is advised to follow up with pcp and otherwise given strict return precautions. . 10/30 10:47 Order name: Strep; Complete Time: 12:20 10/30 10:47 Order name: Flu; Complete Time: 12:20 10/30 11:38 Order name: Throat Culture EDMS Administered Medications: No medications were administered Disposition: 13:01 Co-signature as Attending Physician, Andres Alvarez MD I agree with the assessment and kdr plan of care. Disposition: 10/30/19 12:30 Discharged to Home. Impression: Acute upper respiratory infection, unspecified. - Condition is Stable. - Discharge Instructions: Upper Respiratory Infection, Adult. - Prescriptions for promethazine- DM - take 5 milliliter by ORAL route every 4 hours; 120 milliliter. Albuterol Sulfate 90 mcg/actuation - inhale 1-2 puff by INHALATION route every 4-6 hours; 1 Inhaler. Tamiflu 75 mg Oral Capsule - take 1 tablet by ORAL route every 12 hours for 5 days; 10 tablet. - Medication Reconciliation Form, Thank You Letter, Antibiotic Education, Prescription Opioid Use, Work release form form. - Follow up: Private Physician; When: 2 - 3 days; Reason: Recheck today's complaints, Continuance of care, Re-evaluation by your physician. Signatures: Dispatcher [employer] Andres Prajapati MD MD kdr Mickail, Joel, PA PA jmm Baxter, Heather, RN RN hb Corrections: (The following items were deleted from the chart) 12:47 12:30 10/30/2019 12:30 Discharged to Home. Impression: Acute upper respiratory hb infection, unspecified. Condition is Stable. Forms are Medication Reconciliation Form, Thank You Letter, Antibiotic Education, Prescription Opioid Use. Follow up: Private Physician; When: 2 - 3 days; Reason: Recheck today's complaints, Continuance of care, Re-evaluation by your physician. jesse
--- NOTE | 2019-10-30 12:31 | ER ---
Nurse's Notes [facility] Name: Patricia Posey Age: 34 yrs Sex: Female : 1985 Arrival Date: 10/30/2019 Time: 10:31 Bed 12 Private MD: Diagnosis: Acute upper respiratory infection, unspecified Presentation: 10/30 10:46 Presenting complaint: Nonproductive cough, pain with cough, sore throat, and runny nose hb x 2 days. Denies fever. 10:46 Transition of care: patient was not received from another setting of care. Onset of hb symptoms was October 29, 2019. Risk Assessment: Do you want to hurt yourself or someone else? Patient reports no desire to harm self or others. Care prior to arrival: None. 10:46 Method Of Arrival: Ambulatory hb 10:46 Acuity: DARION 4 hb Historical: - Allergies: 10:48 NKDA; hb - PMHx: 10:48 Back pain; Depression; nerves in heart bad; scoliosis; slipped disc in lower sacral hb area- Dr. Elliott states I need sx on it; - Immunization history:: Adult Immunizations up to date. - Coronavirus screen:: The patient has NOT traveled to [place] in the past 14 days. The patient has NOT had contact with known/suspected case of Coronavirus? Proceed with normal triage procedures. - Social history:: Smoking status: Patient denies any tobacco usage or history of. - Ebola Screening: : No symptoms or risks identified at this time. Vital Signs: 10:47 BP 114 / 78; Pulse 83; Resp 16; Temp 98.3; Pulse Ox 100% on R/A; Weight 78.93 kg; hb Height 5 ft. 5 in. (165.10 cm); Pain 5/10; 10:47 Body Mass Index 28.95 (78.93 kg, 165.10 cm) hb ED Course: 10:31 Patient arrived in ED. ag5 10:53 Arm band placed on. hb 10:54 Triage completed. hb 12:16 Vin Moreira PA is PHCP. [facility] 12:16 Andres Alvarez MD is Attending Physician. jesse 12:47 Jenna Dent, RN is Primary Nurse. hb Administered Medications: No medications were administered Outcome: 12:30 Discharge ordered by . jesse 12:47 Patient left the ED. hb Signatures: Vin Moreira PA PA jmm Baxter, Heather, RN RN Vik Mcclelland ag5
== END 2019-10-30 12:47 | disposition home or self-care (01) ==
LOC: ER 10:25
DX: J06.9 Acute upper respiratory infection, unspecified (principal)
CPT/HCPCS: 87070; 87081; 87804; 99281